=== PATIENT | female | born 1960 | race Caucasian/White ===

== ENCOUNTER 2016-04-27 12:29 | Inpatient (IN) | payer MEDICAID, OTHER ==
--- NOTE | 2016-04-27 13:45 | ED ---
General Adult HPI - General Chief complaint: Psychiatric Symptoms Stated complaint: Mental Health Time Seen by Provider: 04/27/16 12:49 Source: patient, RN notes reviewed, old records reviewed Mode of arrival: ambulatory Limitations: no limitations - History of Present Illness Initial comments: This is a 55-year-old female ER for evaluation of psychiatric not suicidal thoughts, patient has history of suicide and depression, she was at [facility] today and was sent to ER for evaluation of increasing depression and suicidal ideation , patient does have a plan wanted chewable tablets and kill herself. - Related Data Home Medications Medication Instructions Recorded Confirmed Gabapentin [Neurontin] 300 mg PO BID 03/21/15 04/27/16 QUEtiapine FUMARATE [SEROquel XR] 400 mg PO BID 03/21/15 04/27/16 Sertraline [Zoloft] 200 mg PO DAILY 03/21/15 04/27/16 lamoTRIgine [LaMICtal] 150 mg PO QAM 03/21/15 04/27/16 lamoTRIgine [LaMICtal] 200 mg PO HS 03/21/15 04/27/16 Albuterol Inhaler [Ventolin Hfa 2 puff INHALATION RT-QID PRN 04/27/16 04/27/16 Inhaler] Cholecalciferol [Vitamin D3] 2,000 unit PO DAILY 04/27/16 04/27/16 Dicyclomine HCl 20 mg PO TID PRN 04/27/16 04/27/16 LORazepam [Ativan] 1 mg PO BID PRN 04/27/16 04/27/16 Mirtazapine [Remeron] 15 mg PO HS 04/27/16 04/27/16 Polyethylene Glycol 3350 [Miralax] 17 gm PO DAILY 04/27/16 04/27/16 Stress Formula W/Zinc 1 tab PO DAILY 04/27/16 04/27/16 traMADol HCL [Ultram] 50 mg PO Q12H 04/27/16 04/27/16 Allergies Allergy/AdvReac Type Severity Reaction Status Date / Time No Known Allergies Allergy Verified 04/27/16 13:11 Review of Systems ROS Statement: Those systems with pertinent positive or pertinent negative responses have been documented in the HPI. ROS Other: All systems not noted in ROS Statement are negative. Past Medical History Past Medical History: Hypertension History of Any Multi-Drug Resistant Organisms: None Reported Past Surgical History: Orthopedic Surgery Past Psychological History: Anxiety, Bipolar, Depression Smoking Status: Current every day smoker Past Alcohol Use History: None Reported Past Drug Use History: None Reported General Exam Limitations: no limitations General appearance: alert, in no apparent distress Head exam: Present: atraumatic, normocephalic, normal inspection Eye exam: Present: normal appearance, PERRL, EOMI. Absent: scleral icterus, conjunctival injection, periorbital swelling ENT exam: Present: normal exam, mucous membranes moist Neck exam: Present: normal inspection. Absent: tenderness, meningismus, lymphadenopathy Respiratory exam: Present: normal lung sounds bilaterally. Absent: respiratory distress, wheezes, rales, rhonchi, stridor Cardiovascular Exam: Present: regular rate, normal rhythm, normal heart sounds. Absent: systolic murmur, diastolic murmur, rubs, gallop, clicks GI/Abdominal exam: Present: soft, normal bowel sounds. Absent: distended, tenderness, guarding, rebound, rigid Extremities exam: Present: normal inspection, full ROM, normal capillary refill. Absent: tenderness, pedal edema, joint swelling, calf tenderness Back exam: Present: normal inspection Neurological exam: Present: alert, oriented X3, CN II-XII intact Psychiatric exam: Present: normal affect, normal mood Skin exam: Present: warm, dry, intact, normal color. Absent: rash Course Vital Signs 04/27/16 12:40 Temperature 98.1 F Pulse Rate 100 Respiratory 18 Rate Blood Pressure 134/85 O2 Sat by Pulse 97 Oximetry - Reevaluation(s) Reevaluation #1: 04/27/16 13:44 Patient's medically clear for psychiatric evaluation Medical Decision Making - Medical Decision Making 55 female the ER for evaluation of mental health, patient was sent to us by [facility] will be admitted for psychiatric evaluation and treatment Disposition Clinical Impression: Suicidal ideation, Depression Disposition: TRANSFER TO PSYCH HOSP/UNIT Condition: Fair Decision to Admit Reason: Admit from EC
[2016-04-27] MEDS ORDERED: ALBUTEROL INHALER 60 PUFF/8 GM INHALER INHALATION PRN (16:47)
[2016-04-27] MEDS ORDERED: ACETAMINOPHEN TAB 325 MG TAB PO PRN (16:50)
[2016-04-27] MEDS ORDERED: MAGNESIUM HYDROXIDE 2,400 MG/10 ML CUP PO PRN (16:50)
[2016-04-27] MEDS ORDERED: MAG HYDROX/AL HYDROX/SIMETH 30 ML CUP PO PRN (16:50)
[2016-04-27] MEDS: lamoTRIgine 100 MG TAB PO SCH (21:35)
[2016-04-27] MEDS: GABAPENTIN 300 MG CAP PO SCH (21:35)
[2016-04-27] MEDS: QUEtiapine XR 200 MG TAB.ER.24H PO SCH (21:35)
[2016-04-27] MEDS: traMADol 50 MG TAB PO SCH (21:35)
[2016-04-27] MEDS: MIRTAZAPINE 15 MG TAB PO SCH (21:35)
[2016-04-28] MEDS: CHOLECALCIFEROL 1,000 UNIT TAB PO SCH (08:07)
[2016-04-28] MEDS: POLYETHYLENE GLYCOL 3350 17 GM POWD.PACK PO SCH (08:08)
[2016-04-28] MEDS: lamoTRIgine 100 MG TAB PO SCH ×2 (08:10→20:53)
[2016-04-28] MEDS: NICOTINE 14MG/24HR PATCH TRANSDERM SCH (08:10)
[2016-04-28] MEDS: GABAPENTIN 300 MG CAP PO SCH (08:10)
[2016-04-28] MEDS: SERTRALINE 100 MG TAB PO SCH (08:11)
[2016-04-28] MEDS: QUEtiapine XR 200 MG TAB.ER.24H PO SCH ×2 (08:11→20:53)
[2016-04-28] MEDS: traMADol 50 MG TAB PO SCH (08:11)
[2016-04-28] MEDS: LORazepam 1 MG TAB PO PRN (08:13)
[2016-04-28 08:34] LABS: Basophils # (A) 0.1 k/uL (0-0.2); Basophils % (A) 1 %; CH 31.9; CHCM 32.7; Eosinophils # (A) 0.3 k/uL (0-0.7); Eosinophils % (A) 5 %; HCT 43.3 % (34.0-46.0); HDW 2.52; HGB 13.9 gm/dL (11.4-16.0); Luc % (Auto) 3; Lymphocytes # (A) 2.7 k/uL (1.0-4.8); Lymphocytes % (A) 41 %; MCH 31.5 pg (25.0-35.0); MCHC 32.1 g/dL (31.0-37.0); MCV 98.1 fL (80.0-100.0); Mean Platelet Volume 7.6; Monocytes # (A) 0.4 k/uL (0-1.0); Monocytes % (A) 6 %; Neutrophils % (A) 45 %; RBC 4.41 m/uL (3.80-5.40); RDW 12.6 % (11.5-15.5); WBC 6.6 k/uL (3.8-10.6); WBC (Perox) 6.28
[2016-04-28 08:43] LABS: ALT 19 U/L (9-52); AST 26 U/L (14-36); Alkaline Phosphatase 88 U/L (38-126); Anion Gap 12 mmol/L; Blood Urea Nitrogen 7 mg/dL (7-17); Calcium 10.2 mg/dL (8.4-10.2); Carbon Dioxide 27 mmol/L (22-30); Chloride 108 mmol/L (98-107); Glucose 93 mg/dL (74-99); Non-African American GFR(MDRD) >60 (>60 ml/min/1.73 sqM); Potassium 5.2 mmol/L (3.5-5.1); Sodium 147 mmol/L (137-145); Total Bilirubin 0.5 mg/dL (0.2-1.3); Total Protein 7.2 g/dL (6.3-8.2)
[2016-04-28 08:48] VITALS: BMI 26.0
[2016-04-28] MEDS ORDERED: STRESS FORMULA PO SCH (09:00)
[2016-04-28] MEDS ORDERED: ZINC PO SCH (09:00)
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
[2016-04-28] MEDS: buPROPion XL 150 MG TAB.ER.24H PO SCH (11:59)
[2016-04-28] MEDS: MIRTAZAPINE 15 MG TAB PO SCH (20:53)
[2016-04-29] MEDS: NICOTINE 14MG/24HR PATCH TRANSDERM SCH (08:45)
[2016-04-29] MEDS: QUEtiapine XR 200 MG TAB.ER.24H PO SCH ×2 (08:46→20:38)
[2016-04-29] MEDS: lamoTRIgine 100 MG TAB PO SCH ×2 (08:46→20:38)
[2016-04-29] MEDS: buPROPion XL 150 MG TAB.ER.24H PO SCH (08:46)
[2016-04-29] MEDS: SERTRALINE 100 MG TAB PO SCH (08:47)
[2016-04-29] MEDS: POLYETHYLENE GLYCOL 3350 17 GM POWD.PACK PO SCH (08:47)
[2016-04-29] MEDS: CHOLECALCIFEROL 1,000 UNIT TAB PO SCH (08:47)
--- NOTE | 2016-04-29 10:54 | P.CONS ---
History of Present Illness - Reason for Consult Consult date: 04/29/16 Medical management - History of Present Illness This is a 55-year-old female. Her primary care practitioner is Tanisha Marroquin with Dr. Marichuy Parker. She has a past medical history for hypertension on low-fat diet anxiety, depression, bipolar, 2 GI bleeds episodes in the past the last one in December 2014, tobacco use and dependence. Patient states that she has been depressed and suicidal. She follows with [facility] and was sent into [facility] emergency center for evaluation. Sodium was 147, potassium 5.2 and chloride 108. TSH 3.580. She states she was seen by Dr. Preciado on April 23 and was placed on MiraLAX and some type of pain pill. Review of Systems All systems: negative Constitutional: Denies chills, Denies fever Eyes: denies blurred vision, denies pain Ears, nose, mouth and throat: Denies headache, Denies sore throat Cardiovascular: Denies chest pain, Denies shortness of breath Respiratory: Denies cough Gastrointestinal: Denies abdominal pain, Denies diarrhea, Denies nausea, Denies vomiting Genitourinary: Denies dysuria, Denies hematuria Musculoskeletal: Denies myalgias Integumentary: Denies pruritus, Denies rash Neurological: Denies numbness, Denies weakness Psychiatric: Reports anxiety, Reports depression, Reports hopelessness, Reports suicidal ideation Endocrine: Denies fatigue, Denies weight change Past Medical History Past Medical History: Hypertension Additional Past Medical History / Comment(s): GI bleed 2 requiring blood transfusion the last one in December 2014, hypertension on diet control History of Any Multi-Drug Resistant Organisms: None Reported Past Surgical History: Hysterectomy, Orthopedic Surgery, Tubal Ligation Additional Past Surgical History / Comment(s): ACL repair on the right knee, right second finger surgery, tubal ligation Past Psychological History: Anxiety, Bipolar, Depression Smoking Status: Current every day smoker Past Alcohol Use History: None Reported Additional Past Alcohol Use History / Comment(s): Patient is a smoker one pack per day for more than 20 years. She states she was clean from alcohol for 9 years. She denies any medical marijuana, marijuana or street drug use. She is single and she has 3 children Past Drug Use History: None Reported - Past Family History Father Additional Family Medical History / Comment(s): Father at 75 from COPD. Mother Additional Family Medical History / Comment(s): Mother at age 76 from heart failure and COPD Brother(s) Additional Family Medical History / Comment(s): Patient has 1 brother with history of alcohol abuse currently sober. Patient does not have any sisters. Medications and Allergies Home Medications Medication Instructions Recorded Confirmed Type Gabapentin [Neurontin] 300 mg PO BID 03/21/15 04/27/16 History QUEtiapine FUMARATE [SEROquel XR] 400 mg PO BID 03/21/15 04/27/16 History Sertraline [Zoloft] 200 mg PO DAILY 03/21/15 04/27/16 History lamoTRIgine [LaMICtal] 150 mg PO QAM 03/21/15 04/27/16 History lamoTRIgine [LaMICtal] 200 mg PO HS 03/21/15 04/27/16 History Albuterol Inhaler [Ventolin Hfa 2 puff INHALATION RT-QID PRN 04/27/16 04/27/16 History Inhaler] Cholecalciferol [Vitamin D3] 2,000 unit PO DAILY 04/27/16 04/27/16 History Dicyclomine HCl 20 mg PO TID PRN 04/27/16 04/27/16 History LORazepam [Ativan] 1 mg PO BID PRN 04/27/16 04/27/16 History Mirtazapine [Remeron] 15 mg PO HS 04/27/16 04/27/16 History Polyethylene Glycol 3350 [Miralax] 17 gm PO DAILY 04/27/16 04/27/16 History Stress Formula W/Zinc 1 tab PO DAILY 04/27/16 04/27/16 History traMADol HCL [Ultram] 50 mg PO Q12H 04/27/16 04/27/16 History Allergies Allergy/AdvReac Type Severity Reaction Status Date / Time No Known Allergies Allergy Verified 04/27/16 13:11 Physical Exam Vitals: Vital Signs Temp Pulse Resp BP 04/29/16 06:40 97.7 F 84 16 114/69 Intake and Output 04/28/16 04/29/16 04/29/16 21:59 06:59 14:59 Other: Weight 71.3 kg Patient Weight 04/30/16 06:59 Weight 71.3 kg Gen: This is a 55-year-old female with disheveled appearance. She is cooperative. HEENT: Head is atraumatic, normocephalic. Pupils equal, round. Sclerae is anicteric. NECK: Supple. No JVD. No lymphadenopathy. No thyromegaly. LUNGS: Clear to auscultation. No wheezes or rhonchi. No intercostal retractions. HEART: Regular rate and rhythm. No murmur. ABDOMEN: Soft. Bowel sounds are present. No masses. Mild epigastric tenderness tenderness. EXTREMITIES: No pedal edema. No calf tenderness. NEUROLOGICAL: Patient is awake, alert and oriented x3. Cranial nerves 2 through 12 are grossly intact. Results CBC & Chem 7: 04/28/16 08:01 04/28/16 08:01 Assessment and Plan Plan: 1. Depression with suicidal ideation. Patient admitted to the mental health unit. Continue current plan of care. 2. Hypertension on low salt diet. Continue to monitor. 3. Tobacco use and dependence. Continue nicotine patch. 4. Epigastric tenderness with history of previous GI bleed. Hemoglobin stable. Continue Protonix 40 mg daily. 5. Vitamin D efficiency. Continue supplement. 6. Possible COPD. Continue Ventolin inhaler. Impression and plan of care have been directed as dictated by the signing physician. Rita Arango nurse practitioner acting as scribe for signing physician. CC: Tanisha Marroquin NP Time with Patient: Greater than 30
--- NOTE | 2016-04-29 10:56 | P.PN ---
Progress Note - Text Interval history: The patient is found in the hallway she follows me to an interview room. She states her mood is depressed she states she cried all day yesterday. She continues to feel as though she is excessively sleeping. We discussed that it is less usual to use the Seroquel XR twice a day but she feels it is helpful administered that way. We have initiated the Wellbutrin no side effect reports so far. She continues to have hopelessness thinking. She did not attend groups yesterday she is encouraged to begin attending groups today. Appetite impaired she states she did not eat breakfast. Mental status exam: The patient is alert she's cooperative she endorses a depressed mood with hopelessness thinking she is tearful. She demonstrates some psychomotor slowing but is able to ambulate without ataxia. No homicidal ideation no overt symptoms of psychosis hypomania or amee. Insight and judgment limited. She demonstrates no verbal or physical aggressiveness. She is oriented to person place and date. Plan: The patient will continue on her current medication. We will review [facility] medication review records. She is encouraged to fully participate in the milieu we will monitor her for safety.
[2016-04-29] MEDS: LORazepam 1 MG TAB PO PRN (11:15)
[2016-04-29] MEDS: PANTOPRAZOLE 40 MG TABLET PO SCH (11:15)
[2016-04-29 12:48] LABS: Appearance,Urine Clear (Clear); Bilirubin,Urine Negative (Negative); Glucose,Urine (UA) Negative (Negative); Ketones,Urine Negative (Negative); Leukocyte Esterase,Urine Negative (Negative); Nitrite,Urine Negative (Negative); Protein,Urine Negative (Negative); Specific Gravity,Urine 1.003 (1.001-1.035); UA Billing (MACRO vs. MICRO) CHEM; Urobilinogen,Urine <2.0 mg/dL (<2.0)
[2016-04-29] MEDS: MIRTAZAPINE 15 MG TAB PO SCH (20:38)
[2016-04-30] MEDS: PANTOPRAZOLE 40 MG TABLET PO SCH (06:45)
[2016-04-30] MEDS: buPROPion XL 150 MG TAB.ER.24H PO SCH (09:06)
[2016-04-30] MEDS: lamoTRIgine 100 MG TAB PO SCH ×2 (09:06→19:54)
[2016-04-30] MEDS: CHOLECALCIFEROL 1,000 UNIT TAB PO SCH (09:06)
[2016-04-30] MEDS: QUEtiapine XR 200 MG TAB.ER.24H PO SCH ×2 (09:06→19:55)
[2016-04-30] MEDS: NICOTINE 14MG/24HR PATCH TRANSDERM SCH (09:06)
[2016-04-30] MEDS: SERTRALINE 100 MG TAB PO SCH (09:07)
[2016-04-30] MEDS: POLYETHYLENE GLYCOL 3350 17 GM POWD.PACK PO SCH ×2 (09:09→19:57)
[2016-04-30] MEDS: LORazepam 1 MG TAB PO PRN ×2 (09:09→14:29)
--- NOTE | 2016-04-30 09:25 | P.PN ---
Progress Note - Text Interval history: The patient is found in the hallway she follows me to an interview room. She continues to feel sad she states she was tearful throughout the day yesterday. She reports that she had a brief episode of feeling more normal in the afternoon. We discussed her psychotropic medications again and are likely plan of titrating the Wellbutrin XL further. She went to approximate to groups yesterday she plans on attending more today. She describes having difficulty with constipation and states that her train clerk wants her on MiraLAX twice a day. Mental status exam: The patient is alert she seated calmly she reports a depressed mood with hopelessness thinking. She endorses continued suicidal ideation. She is briefly tearful during our session and reconstitutes. There is mild psychomotor slowing. No psychomotor agitation. Speech is fluent spontaneous nonpressured. She is cooperative. She is endorsing no auditory or visual hallucinations no specific delusions. She demonstrates no hypomanic or manic symptoms. She remains oriented to person place and date. Plan: The patient requires continued hospitalization for her acute suicidal ideation. We will consider titrating the Wellbutrin further this is a new medication for her. We will add Colace and increase the frequency of the MiraLAX to address her complaint of constipation. She is encouraged to more fully participate in the milieu. Vital signs reviewed.
[2016-04-30] MEDS: DOCUSATE 100 MG CAP PO SCH ×2 (09:47→19:55)
[2016-04-30] MEDS ORDERED: DICYCLOMINE 20 MG TAB PO SCH (19:00)
[2016-04-30] MEDS: DICYCLOMINE 20 MG TAB PO PRN (19:45)
[2016-04-30] MEDS: MIRTAZAPINE 15 MG TAB PO SCH (19:54)
[2016-05-01 06:14] VITALS: RESP 18
--- NOTE | 2016-05-01 09:23 | P.PN ---
Progress Note - Text Interval history: The patient is found in the hallway she follows me to an interview room. She reports that today is the first morning she did not wake up crying. She is beginning to feel more upbeat and states she hasn't had any suicidal thoughts today so far. We discussed her medications including increasing Wellbutrin XL to 300 mg daily and she is agreeable. I was able to review a recent progress note from [facility]. She reports sleeping last night appetite stable. Mental status exam: The patient is alert she is dressed in her own clothing. Eye contact is appropriate speech is fluent. She is reporting a more optimistic mood. She states this morning is the first time she has not had any suicidal thoughts and has not been tearful. She does engage in the conversation. She is reporting no homicidal ideation intent or plan. She is endorsing no auditory or visual hallucinations there is no evidence of hypomanic or manic symptoms. Insight and judgment improving. Cognitively she is oriented to person place and date. No evidence of verbal or physical aggressiveness. Affect is demonstrating more range. Plan: The patient's will continue on her current psychotropic medication however we will increase the Wellbutrin XL to 300 mg daily. We will continue to monitor her for safety and encourage her full participation in the milieu. Consider discharge in the next 1-2 days.
[2016-05-01] MEDS: lamoTRIgine 100 MG TAB PO SCH ×2 (09:24→20:04)
[2016-05-01] MEDS: DOCUSATE 100 MG CAP PO SCH ×2 (09:24→20:04)
[2016-05-01] MEDS: CHOLECALCIFEROL 1,000 UNIT TAB PO SCH (09:24)
[2016-05-01] MEDS: NICOTINE 14MG/24HR PATCH TRANSDERM SCH (09:24)
[2016-05-01] MEDS: POLYETHYLENE GLYCOL 3350 17 GM POWD.PACK PO SCH ×2 (09:25→20:04)
[2016-05-01] MEDS: SERTRALINE 100 MG TAB PO SCH (09:25)
[2016-05-01] MEDS: QUEtiapine XR 200 MG TAB.ER.24H PO SCH ×2 (09:25→20:04)
[2016-05-01] MEDS: buPROPion XL 300 MG TAB.ER.24H PO SCH (09:32)
[2016-05-01] MEDS: buPROPion XL 150 MG TAB.ER.24H PO SCH (11:02)
[2016-05-01] MEDS: LORazepam 1 MG TAB PO PRN ×2 (11:03→20:06)
[2016-05-01] MEDS: DICYCLOMINE 20 MG TAB PO PRN (16:06)
[2016-05-01] MEDS: MIRTAZAPINE 15 MG TAB PO SCH (20:04)
[2016-05-02 06:43] VITALS: BP 115/75; PULSE 98; TEMP 97.5
--- NOTE | 2016-05-02 08:55 | P.DS ---
Providers Date of admission: 04/27/16 16:42 Expected date of discharge: 05/02/16 Attending physician: Slick Lawler Consults: 04/27/16 16:50 Consult Physician Routine Consulting Provider: Carlos Lane Reason/Comments: H and P Do you want consulting provider notified?: Yes Primary care physician: Queta Damon - Discharge Diagnosis(es) (1) Bipolar disorder, most recent episode depressed Current Visit: Yes Status: Acute Priority: High Hospital Course: Brief summary of admission note: This patient is a 55-year-old female who was admitted to the mental health unit through the emergency room for acute suicidal ideation. The patient reported worsening mood symptoms over the last 2 weeks including suicidal ideation. She stated her mood was "as low as it can go". She reported being tearful on a regular basis she was experiencing hypersomnia energy is low and anhedonia. She felt hopeless. She endorsed anxiety symptoms manifesting as panic attacks. She endorsed a history of bipolar disorder. For full details please refer to my psychiatric evaluation dated 04/28/2016. Summary of hospital course: The patient was admitted to the mental health unit voluntarily. We reviewed her presenting symptoms and medication options. The patient had artery been prescribed 6 psychotropic medications. We reviewed each and ultimately decided to discontinue Neurontin and initiate Wellbutrin XL which was eventually titrated to 300 mg daily. The patient's other psychotropic medications were continued. She was seen for a routine medical consultation. She attended groups she demonstrated no agitated behavior. While here in the hospital she reported a progressive improvement of her acute symptoms. She is scheduled to start DBT group and we discussed the benefits of that activity. The patient was able to participate in her activities of daily living while on the mental health unit. Mental status exam: The patient is an alert female appearing her stated age. She is dressed in her own clothing. Hygiene grooming adequate. Eye contact is appropriate speech is fluent and spontaneous nonpressured. She is reporting no acute suicidal or homicidal ideation intent or plan. She is endorsing no auditory or visual hallucinations and no specific delusions. There is no objective evidence of psychosis. There is no evidence of hypomanic or manic symptoms. Insight and judgment improved area cognitively she remains stable she is oriented to person place and date. There is no verbal or physical aggressiveness observed. Affect is more euthymic and she demonstrates an appropriate range of affect. Thought process is linear there is no evidence of circumstantial thinking tangential thinking loose associations or flight of ideas. Impressions 1. Bipolar disorder most recent depressed, alcohol use disorder in remission, rule out panic disorder, rule out PTSD 2. Cluster B traits 3. Infrequent back pain, possible asthma, IBS 4. Psychosocial dysfunction due to exacerbated symptoms of depression Plan: The patient will be discharged home today from the mental health unit following her family meeting. She will continue on Lamictal 150 mg in the morning 200 mg at bedtime, Wellbutrin XL 300 mg in the morning, Remeron 15 mg at bedtime, Zoloft 200 mg at bedtime, Seroquel XR 400 mg in the evening and Ativan 1 mg twice daily as needed. There is no imminent safety risk the patient is appropriate for transition back to outpatient services with [facility]. I agree with her initiating DBT group. She is instructed to return to the hospital if any acute safety concerns. Patient Condition at Discharge: Stable Plan - Discharge Summary New Discharge Prescriptions: Mirtazapine [Remeron] 15 mg PO HS #30 tablet Nicotine 14Mg/24Hr Patch [Habitrol] 1 patch TRANSDERM DAILY #14 patch QUEtiapine FUMARATE [Seroquel Xr] 400 mg PO BID #60 tab.er.24h Sertraline [Zoloft] 200 mg PO DAILY #60 tab buPROPion XL [Wellbutrin XL] 300 mg PO DAILY #30 tab.er.24h lamoTRIgine 150 mg PO DAILY #30 tab lamoTRIgine [LaMICtal Odt] 200 mg PO HS #30 tab Discharge Medication List Albuterol Inhaler [Ventolin Hfa Inhaler] 2 puff INHALATION RT-QID PRN 04/27/16 [ History] Cholecalciferol [Vitamin D3] 2,000 unit PO DAILY 04/27/16 [History] Dicyclomine HCl 20 mg PO TID PRN 04/27/16 [History] LORazepam [Ativan] 1 mg PO BID PRN 04/27/16 [History] Polyethylene Glycol 3350 [Miralax] 17 gm PO DAILY 04/27/16 [History] Stress Formula W/Zinc 1 tab PO DAILY 04/27/16 [History] traMADol HCL [Ultram] 50 mg PO Q12H 04/27/16 [History] Mirtazapine [Remeron] 15 mg PO HS #30 tablet 05/02/16 [Rx] Nicotine 14Mg/24Hr Patch [Habitrol] 1 patch TRANSDERM DAILY #14 patch 05/02/16 [ Rx] QUEtiapine FUMARATE [Seroquel Xr] 400 mg PO BID #60 tab.er.24h 05/02/16 [Rx] Sertraline [Zoloft] 200 mg PO DAILY #60 tab 05/02/16 [Rx] buPROPion XL [Wellbutrin XL] 300 mg PO DAILY #30 tab.er.24h 05/02/16 [Rx] lamoTRIgine 150 mg PO DAILY #30 tab 05/02/16 [Rx] lamoTRIgine [LaMICtal Odt] 200 mg PO HS #30 tab 05/02/16 [Rx] Follow up Appointment(s)/Referral(s): [facility] [Outside] - 1 Week (w/ Justina Casey on 05/04/16 @ 11:00am w/ Rosaura Romero on 05/04/16 @ 3:00pm)
[2016-05-02] MEDS: lamoTRIgine 100 MG TAB PO SCH (09:14)
[2016-05-02] MEDS: QUEtiapine XR 200 MG TAB.ER.24H PO SCH (09:14)
[2016-05-02] MEDS: LORazepam 1 MG TAB PO PRN (09:14)
[2016-05-02] MEDS: SERTRALINE 100 MG TAB PO SCH (09:14)
[2016-05-02] MEDS: CHOLECALCIFEROL 1,000 UNIT TAB PO SCH (09:14)
[2016-05-02] MEDS: buPROPion XL 300 MG TAB.ER.24H PO SCH (09:15)
[2016-05-02] MEDS: NICOTINE 14MG/24HR PATCH TRANSDERM SCH (09:15)
[2016-05-02] MEDS: DOCUSATE 100 MG CAP PO SCH (09:15)
[2016-05-02] MEDS: POLYETHYLENE GLYCOL 3350 17 GM POWD.PACK PO SCH (09:15)
== END 2016-05-02 12:08 | disposition home or self-care (01) | DRG 885 ==
LOC: EC 12:29 → 3MHU 16:42
PROVIDERS: ADMIT Psychiatry & Neurology Psychiatry; ATTEND Psychiatry & Neurology Psychiatry
DX: F31.9 Bipolar disorder, unspecified (principal); R45.851 Suicidal ideations; I10 Essential (primary) hypertension; F41.0 Panic disorder [episodic paroxysmal anxiety]; F17.200 Nicotine dependence, unspecified, uncomplicated; Z79.899 Other long term (current) drug therapy; Z81.8 Family history of other mental and behavioral disorders; Z82.49 Family history of ischemic heart disease and other diseases of the circulatory system; F59 Unspecified behavioral syndromes associated with physiological disturbances and physical factors; J45.909 Unspecified asthma, uncomplicated; K58.1 Irritable bowel syndrome with constipation
CPT/HCPCS: 80053; 80306; 81003; 82075; 84443; 85025; 94640; 99285

== ENCOUNTER → 2017-09-02 | Outpatient (CLI) | payer MEDICARE ==
--- NOTE | 2017-09-02 16:37 | BD ---
EXAMINATION TYPE: Axial Bone Density DATE OF EXAM: 09/02/2017 COMPARISON: NONE CLINICAL HISTORY: 56-year-old female with bone pain Height: 64 IN Weight: 173 LBS FRAX RISK QUESTIONS: Secondary Osteoporosis: Current Tobacco Use: YES RISK FACTORS HISTORY OF: History of Wrist Fracture: RT WRIST AGE AGE 48 When: AGE 48 Active: MODERATE Diet low in dairy products/other sources of calcium: YES Postmenopausal woman: AGE 48 Frequent falls: YES DUE TO NUMBNESS IN LEGS MEDICATIONS: Additional Medications: LAMICTAL, QUETIPINE, EFFEXOR, ATIVAN, TRAMADOL, POLYETHYLENE, LISINOPRIL, EXAM MEASUREMENTS: Bone mineral densitometry was performed using the [employer]. Bone mineral density as measured about the Lumbar spine is: ----- L1-L4(G/cm2): 1.390 T Score Values are as follows: ----- L2: 0.7 ----- L3: 2.6 ----- L4: 2.9 ----- L1-L4: 1.8 Bone mineral density BASELINE Bone mineral density about the R hip (g/cm2): 1.075 Bone mineral density about the L hip (g/cm2): 1.105 T Score values are as follows: -----R Neck: 0.3 -----L Neck: 0.5 -----R Total: 0.0 -----L Total: 0.3 Bone mineral density BASELINE IMPRESSION: Normal (Values between +1 and -1 indicate normal bone mass). Consider repeating this study in 5 year s or sooner if there is some new clinical indication. NOTE: T-SCORE=SD OF THE YOUNG ADULT MEAN.
== END | disposition home or self-care (01) ==
LOC: RADBDWWP 12:27
PROVIDERS: ATTEND Internal Medicine
DX: M89.8X9 Other specified disorders of bone, unspecified site (principal)
CPT/HCPCS: 77080

== ENCOUNTER 2017-09-24 13:28 | Inpatient (IN) | payer MEDICARE ==
--- NOTE | 2017-09-24 14:08 | ED ---
General Adult HPI - General Chief complaint: Psychiatric Symptoms Stated complaint: EPS eval Time Seen by Provider: 09/24/17 13:40 Source: patient, EMS, RN notes reviewed Mode of arrival: EMS Limitations: no limitations - History of Present Illness Initial comments: This a 56-year-old female presents emergency Department complaining that she's been hallucinating lately and hearing voices. Patient states she thought yesterday her and her doctor were in a car together driving somewhere and also had to drive around her boyfriend he was standing in the middle of the road her boyfriend confirmed to her today that that did not happen. Also the patient states she believes yesterday she went to her doctor's office to do her grocery shopping. Patient also states she's been having which she believes to be the devil talking her to tell her to kill herself. Patient states she is not suicidal and she is not listening to home but she does keep her in the voices. She also states she hears God talking to her telling her it'll be all right. Patient denies any physical complaints today. Patient denies headache patient denies numbness weakness. Patient denies any chest pain difficulty breathing shortest breath per patient denies abdominal pain patient denies nausea vomiting diarrhea. Patient states that she has not drank or done any illegal drugs - Related Data Home Medications Medication Instructions Recorded Confirmed Polyethylene Glycol 3350 [Miralax] 17 gm PO DAILY 04/27/16 09/24/17 lamoTRIgine [LaMICtal] 200 mg PO HS 02/06/17 09/24/17 LORazepam [Ativan] 1 mg PO TID PRN 09/24/17 09/24/17 Lisinopril [Zestril] 10 mg PO DAILY 09/24/17 09/24/17 Venlafaxine HCl ER [Effexor Xr] 75 mg PO BID-W/MEALS 09/24/17 09/24/17 lamoTRIgine [LaMICtal] 150 mg PO QAM 09/24/17 09/24/17 traMADol HCL [Ultram] 50 mg PO BID 09/24/17 09/24/17 Previous Rx's Medication Instructions Recorded QUEtiapine FUMARATE [Seroquel Xr] 400 mg PO BID #60 tab.er.24h 05/02/16 Allergies Allergy/AdvReac Type Severity Reaction Status Date / Time No Known Allergies Allergy Verified 09/24/17 14:35 Review of Systems ROS Statement: Those systems with pertinent positive or pertinent negative responses have been documented in the HPI. ROS Other: All systems not noted in ROS Statement are negative. Past Medical History Past Medical History: Hypertension Additional Past Medical History / Comment(s): GI bleed 2 requiring blood transfusion the last one in December 2014, hypertension on diet control History of Any Multi-Drug Resistant Organisms: None Reported Past Surgical History: Hysterectomy, Orthopedic Surgery, Tubal Ligation Additional Past Surgical History / Comment(s): ACL repair on the right knee, right second finger surgery, tubal ligation Past Psychological History: Anxiety, Bipolar, Depression Smoking Status: Current every day smoker Past Alcohol Use History: None Reported Past Drug Use History: None Reported - Past Family History Father Additional Family Medical History / Comment(s): Father at 75 from COPD. Mother Additional Family Medical History / Comment(s): Mother at age 76 from heart failure and COPD Brother(s) Additional Family Medical History / Comment(s): Patient has 1 brother with history of alcohol abuse currently sober. Patient does not have any sisters. General Exam - General Exam Comments Initial Comments: GENERAL: Patient is well-developed and well-nourished. Patient is nontoxic and well- hydrated and is in no acute distress. ENT: Neck is soft and supple. No significant lymphadenopathy is noted. Oropharynx is clear. Moist mucous membranes. Neck has full range of motion without eliciting any pain. EYES: The sclera were anicteric and conjunctiva were pink and moist. Extraocular movements were intact and pupils were equal round and reactive to light. Eyelids were unremarkable. PULMONARY: Unlabored respirations. Good breath sounds bilaterally. No audible rales rhonchi or wheezing was noted. CARDIOVASCULAR: There is a regular rate and rhythm without any murmurs gallops or rubs. ABDOMEN: Soft and nontender with normal bowel sounds. SKIN: Skin is clear with no lesions or rashes and otherwise unremarkable. NEUROLOGIC: Patient is alert and oriented x3. Cranial nerves II through XII are grossly intact. Motor and sensory are also intact. Normal speech, volume and content. Symmetrical smile. MUSCULOSKELETAL: Normal extremities with adequate strength and full range of motion. No lower extremity swelling or edema. No calf tenderness. LYMPHATICS: No significant lymphadenopathy is noted PSYCHIATRIC: Patient states she's hallucinating and is hearing voices. Patient denies suicidal or homicidal ideations the voices are telling her to Limitations: no limitations Course Vital Signs 09/24/17 13:37 Temperature 98.0 F Pulse Rate 116 H Respiratory 18 Rate Blood Pressure 138/90 O2 Sat by Pulse 95 Oximetry Disposition Clinical Impression: Psychosis Disposition: ADMITTED IP TO THIS HOSP Referrals: Queta Damon MD [Primary Care Provider] - 1-2 days Time of Disposition: 15:42
[2017-09-24] MEDS ORDERED: MAG HYDROX/AL HYDROX/SIMETH 30 ML CUP PO PRN (19:16)
[2017-09-24] MEDS ORDERED: MAGNESIUM HYDROXIDE 2,400 MG/10 ML CUP PO PRN (19:16)
[2017-09-24] MEDS: traMADol 50 MG TAB PO SCH (20:42)
[2017-09-24] MEDS: QUEtiapine 400 MG TAB PO SCH (20:42)
[2017-09-24] MEDS: lamoTRIgine 100 MG TAB PO SCH (20:42)
[2017-09-25] MEDS: LORazepam 1 MG TAB PO PRN (05:55)
--- NOTE | 2017-09-25 07:07 | P.PN ---
Progress Note - Text Progress Note Date: 09/25/17 patient with acute psychosis , and sedated could not be evaluated at this time. patient will be seen at a later time when more appropriate
[2017-09-25] MEDS ORDERED: VENLAFAXINE HCL ER 75 MG CAP PO SCH (07:30)
[2017-09-25] MEDS: POLYETHYLENE GLYCOL 3350 17 GM POWD.PACK PO SCH (08:39)
[2017-09-25] MEDS: lamoTRIgine 100 MG TAB PO SCH ×2 (08:40→20:26)
[2017-09-25] MEDS: QUEtiapine 400 MG TAB PO SCH (08:41)
[2017-09-25] MEDS: traMADol 50 MG TAB PO SCH (08:41)
[2017-09-25] MEDS: LISINOPRIL 10 MG TAB PO SCH (08:43)
[2017-09-25 09:10] LABS: Basophils % (A) 1 %; Eosinophils # (A) 0.2 k/uL (0-0.7); Eosinophils % (A) 2 %; HGB 12.5 gm/dL (11.4-16.0); Lymphocytes # (A) 2.4 k/uL (1.0-4.8); Lymphocytes % (A) 28 %; MCH 29.7 pg (25.0-35.0); MCHC 32.1 g/dL (31.0-37.0); MCV 92.5 fL (80.0-100.0); Mean Platelet Volume 6.3; Monocytes # (A) 0.5 k/uL (0-1.0); Monocytes % (A) 6 %; Neutrophils # (A) 5.1 k/uL (1.3-7.7); Neutrophils % (A) 61 %; Platelet Count 442 k/uL (150-450); RBC 4.21 m/uL (3.80-5.40); WBC 8.4 k/uL (3.8-10.6)
[2017-09-25] MEDS: VENLAFAXINE HCL ER 75 MG CAP PO SCH (09:38)
[2017-09-25 09:48] LABS: ALT 26 U/L (9-52); AST 30 U/L (14-36); Albumin 4.6 g/dL (3.5-5.0); Alkaline Phosphatase 78 U/L (38-126); Anion Gap 11 mmol/L; Blood Urea Nitrogen 9 mg/dL (7-17); Carbon Dioxide 24 mmol/L (22-30); Chloride 105 mmol/L (98-107); Cholesterol 273 mg/dL (<200); Glucose 87 mg/dL (74-99); HDL Cholesterol 61 mg/dL (40-60); LDL Cholesterol,Calculated 179 mg/dL (0-99); Potassium 4.4 mmol/L (3.5-5.1); Sodium 140 mmol/L (137-145); Total Bilirubin 0.4 mg/dL (0.2-1.3); Total Protein 7.1 g/dL (6.3-8.2); Triglycerides 167 mg/dL (<150)
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
--- NOTE | 2017-09-25 13:33 | P.CONS ---
History of Present Illness - Reason for Consult Consult date: 09/25/17 Medical management - Chief Complaint Hallucination - History of Present Illness This is a 56-year-old female with past medical history noted below significant for underlying bipolar disorder who presented to the emergency room with audible hallucination. Apparently patient believes on presentation that God was talking to her. She denies any suicidal thoughts or ideation. She denies any headache, weakness, or numbness. She was very agitated last night. When I saw her this morning patient was awake and alert. She was cooperative. She denies any suicidal thoughts at this time. She doesn't have any complaints or concerns. I was asked to see her for medical management Review of Systems Review of system: 14 points review of systems were obtained and were negative except to what were mentioned in the HPI. Past Medical History Past Medical History: GI Bleed, Hypertension, Osteoarthritis (OA) Additional Past Medical History / Comment(s): GI bleed 2 requiring blood transfusion the last one in December 2014, hypertension on diet control, alopecia, ibs, ulcerative colitis, diffuse diverticulosis, shingles that affected rt eye,cataracts. 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 History of Any Multi-Drug Resistant Organisms: None Reported Past Surgical History: Hysterectomy, Orthopedic Surgery, Tonsillectomy, Tubal Ligation Additional Past Surgical History / Comment(s): ACL repair on the right knee, right second finger severed tendons repaired.tubal ligation Past Anesthesia/Blood Transfusion Reactions: No Reported Reaction Past Psychological History: Anxiety, Bipolar, Depression Smoking Status: Current every day smoker Past Alcohol Use History: None Reported Additional Past Alcohol Use History / Comment(s): Patient is a smoker one pack per day (started 1979). 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 and clean from drug use(angle dust,acid,mesculine, cocaine -since 2006She denies any medical marijuana, marijuana or street drug use currently. She is single and she has 3 children Past Drug Use History: None Reported - Past Family History Father Additional Family Medical History / Comment(s): Father at 75 from COPD. Mother Additional Family Medical History / Comment(s): Mother at age 76 from heart failure and COPD Brother(s) Additional Family Medical History / Comment(s): Patient has 1 brother with history of alcohol abuse currently sober. Patient does not have any sisters. Medications and Allergies Home Medications Medication Instructions Recorded Confirmed Type Polyethylene Glycol 3350 [Miralax] 17 gm PO DAILY 04/27/16 09/24/17 History QUEtiapine FUMARATE [Seroquel Xr] 400 mg PO BID #60 tab.er.24h 05/02/16 Rx lamoTRIgine [LaMICtal] 200 mg PO HS 02/06/17 09/24/17 History LORazepam [Ativan] 1 mg PO TID PRN 09/24/17 09/24/17 History Lisinopril [Zestril] 10 mg PO DAILY 09/24/17 09/24/17 History Venlafaxine HCl ER [Effexor Xr] 75 mg PO BID-W/MEALS 09/24/17 09/24/17 History lamoTRIgine [LaMICtal] 150 mg PO QAM 09/24/17 09/24/17 History traMADol HCL [Ultram] 50 mg PO BID 09/24/17 09/24/17 History Allergies Allergy/AdvReac Type Severity Reaction Status Date / Time No Known Allergies Allergy Verified 09/24/17 14:35 Physical Exam Vitals: Vital Signs Temp Pulse Pulse Resp BP BP Pulse Ox 09/25/17 08:40 99 18 128/81 09/25/17 05:55 98.1 F 99 16 166/98 09/24/17 19:14 98 14 134/84 96 09/24/17 18:39 93 18 137/86 96 09/24/17 13:37 98.0 F 116 H 18 138/90 95 Intake and Output 09/24/17 09/25/17 09/25/17 22:59 06:59 14:59 Other: Weight 76 kg General: The patient is awake and alert, in no distress Eye: there is normal conjunctiva bilaterally. Neck: The neck is supple, there is no JVD. Cardiovascular: Normal S1-S2, no S3-S4, no murmurs. Respiratory: Lungs clear to auscultation bilaterally Gastrointestinal: Abdomen is soft, nontender Musculoskeletal: There is no pedal edema. Neurological:. Speech is normal. Skin: Skin is warm and dry Results CBC & Chem 7: 09/25/17 08:21 09/25/17 08:21 Labs: Abnormal Lab Results - Last 24 Hours (Table) 09/25/17 Range/Units 08:21 Triglycerides 167 H (<150) mg/dL Cholesterol 273 H (<200) mg/dL LDL Cholesterol, Calc 179 H (0-99) mg/dL HDL Cholesterol 61 H (40-60) mg/dL Assessment and Plan Assessment: 1. Bipolar disorder 2. Major depressive disorder 3. Audible hallucination 4. Psychosocial dysfunction 5. Tobacco abuse: Counseled extensively to quit 6. Essential hypertension, blood pressure well-controlled continue current dose of lisinopril Today, I reviewed her medication list and lab work results. Management per psychiatry team. We will continue to follow-up on her on as-needed basis. Thank you for the consultation.
[2017-09-25 19:32] LABS: Hemoglobin A1C 5.8 % (4.0-6.0)
[2017-09-25] MEDS: ARIPiprazole 2 MG TAB PO SCH (19:51)
[2017-09-25] MEDS: QUEtiapine 100 MG TAB PO SCH (20:26)
[2017-09-25] MEDS: traMADol 50 MG TAB PO PRN (20:46)
[2017-09-26] MEDS: QUEtiapine 100 MG TAB PO SCH ×2 (09:23→20:26)
[2017-09-26] MEDS: lamoTRIgine 100 MG TAB PO SCH ×2 (09:23→20:25)
[2017-09-26] MEDS: LISINOPRIL 10 MG TAB PO SCH (09:24)
[2017-09-26] MEDS: VENLAFAXINE HCL ER 75 MG CAP PO SCH (09:24)
[2017-09-26] MEDS: traMADol 50 MG TAB PO PRN (09:25)
[2017-09-26] MEDS: LORazepam 1 MG TAB PO PRN ×2 (09:25→16:16)
[2017-09-26] MEDS: POLYETHYLENE GLYCOL 3350 17 GM POWD.PACK PO SCH (10:57)
--- NOTE | 2017-09-26 12:36 | P.PN ---
Progress Note - Text Progress Note Date: 09/26/17 Interval History: Patient is a 56-year-old female who reports that she had one visual hallucination last evening otherwise no auditory hallucinations and states she is feeling more hopeful. She described feeling more revved up today but no suicidal thoughts and not feeling paranoid. She states that she was able to eat breakfast this morning. Patient reported no side effects from the changes in her medication and states she is not feeling any flulike symptoms from the decrease in the Effexor dose. Patient reported that she is hopeful that the changes in her medications will be beneficial. Mental Status: Appearance/Attitude: Patient is appropriately dressed, made good eye contact and was cooperative Behavior: Patient did not exhibit any psychomotor agitation or retardation Speech/Language: Patient's speech was spontaneous of normal volume and rhythm and she was coherent. Thought Process: Patient was goal-directed there is no evidence of loose association or flight of ideas Thought Content: Patient denied any auditory hallucinations and states she had one visual hallucination yesterday at night and asked staff to reorient her. No delusions or paranoid ideation were elicited. Patient states that she slept fairly well last evening but reports feeling revved up today. She states that she was able to eat breakfast. Suicidal/Homicidal Ideation: Patient denied any current suicidal or homicidal ideation Sensorium/Cognition: Patient is alert and oriented to person, place, time Mood/Affect: Patient's mood is brighter today and her affect is appropriate Insight/Judgment: Patient's insight and judgment are fair Assessment: Patient reports feeling more hopeful, states that she is not hearing voices, and states that she had one visual hallucination last night and asked staff to reorient her. She reported feeling more revved up today though. She states that she was able to eat breakfast this morning. Patient states she's been attending groups and activities. Kimber at that the patient slept for 6 hours last night. Plan: Patient will continue on her Lamictal at one or 50 mg the morning 200 at bedtime, will decrease her Seroquel tomorrow to 200 mg twice a day beginning with the at bedtime dose, we'll also consider increasing her Abilify to 5 mg tomorrow. Patient will have a lower dose of Effexor beginning tomorrow 37-1/2 mg extended release and after 3 days we'll discontinue it. Patient continues to require hospitalization to stabilize her mood.
[2017-09-26] MEDS: ARIPiprazole 2 MG TAB PO SCH (20:25)
[2017-09-27] MEDS: lamoTRIgine 100 MG TAB PO SCH ×2 (09:12→20:50)
[2017-09-27] MEDS: LISINOPRIL 10 MG TAB PO SCH (09:13)
[2017-09-27] MEDS: POLYETHYLENE GLYCOL 3350 17 GM POWD.PACK PO SCH (09:13)
[2017-09-27] MEDS: VENLAFAXINE HCL ER 37.5 MG CAP PO SCH (09:13)
[2017-09-27] MEDS: QUEtiapine 100 MG TAB PO SCH (09:13)
[2017-09-27] MEDS: traMADol 50 MG TAB PO PRN ×2 (09:14→20:50)
--- NOTE | 2017-09-27 11:27 | P.PN ---
Progress Note - Text Progress Note Date: 09/27/17 Interval History: Patient is a 56-year-old female who was seen today, she reports that she is not feeling quite as energized as she was yesterday but states that her appetite has improved. She reports still having visual hallucinations at night when she gets up in the middle of the night but staff reorients her and she states she is fine after that. Patient denies any suicidal ideation and states she did sleep well last night and felt rested this morning. Patient reports no side effects from the adjustments in her medication other than feeling slightly sedated this morning. Mental Status: Appearance/Attitude: Patient is casually dressed, makes good eye contact and was cooperative. Behavior: She does not exhibit any psychomotor agitation or retardation. Speech/Language: Patient speech was spontaneous of normal volume and rhythm and she is coherent. Thought Process: Patient was goal-directed there is no evidence of loose association or flight of ideas Thought Content: Patient denied any auditory hallucinations and states she continues to have visual hallucinations at night when she awakens in the middle of the night. No paranoid or delusional ideation was elicited. Patient states that she slept for 6-1/2 hours last night and also reports that her appetite has improved. Patient reports no side effects from the changes in her medication other than feeling slightly sedated this morning. Suicidal/Homicidal Ideation: Patient denied any suicidal or homicidal ideation at this time Sensorium/Cognition: Patient is alert and oriented to person, place, time and her recent and remote memory grossly intact Mood/Affect: Patient's mood is more depressed today and her affect is appropriate Insight/Judgment: Patient's insight and judgment are intact Assessment: Patient and I discussed fact that she is not feeling quite as energized today in fact was feeling slightly sedated after her morning medication. She reports however that her appetite has improved and she slept well last night. She reports of visual hallucination last night when she awakened in the middle of the night but was reoriented by staff. She states that she is attending groups and activities. Patient reported no other side effects from the medication changes. Plan: We'll continue Effexor 37.5 mg extended release and discontinue after her dose on Saturday, we'll decrease her Seroquel to 200 mg twice a day, and decreased further to 100 mg twice a day beginning Aidan evening. Patient's Abilify will be increased to 5 mg tonight and increase it to 10 mg on Saturday night. Patient continues to require hospitalization to stabilize her mood and continue the cross titration of medications.
[2017-09-27] MEDS: LORazepam 1 MG TAB PO PRN (14:43)
[2017-09-27 17:10] LABS: Appearance,Urine Clear (Clear); Bilirubin,Urine Negative (Negative); Blood,Urine Negative (Negative); Color,Urine Light Yellow; Glucose,Urine (UA) Negative (Negative); Ketones,Urine Negative (Negative); Leukocyte Esterase,Urine Negative (Negative); Nitrite,Urine Negative (Negative); PH, Urine 6.5 (5.0-8.0); Protein,Urine Negative (Negative); Specific Gravity,Urine 1.007 (1.001-1.035); Urobilinogen,Urine <2.0 mg/dL (<2.0)
[2017-09-27 17:21] LABS: Amphetamine Screen,Urine Not Detected (NotDetected); Barbiturate Screen,Urine Not Detected (NotDetected); Benzodiazepines Screen,Urine Detected (NotDetected); Cocaine Screen,Urine Not Detected (NotDetected); Methadone Screen, Urine Not Detected (NotDetected); Opiate Screen,Urine Not Detected (NotDetected); Oxycodone Screen, Urine Not Detected (NotDetected); Phencyclidine Screen,Urine Not Detected (NotDetected); Tricyclic Antidepressant,Urine Detected (NotDetected); Urn Cannabinoid Scrn Not Detected (NotDetected)
[2017-09-27] MEDS: ARIPiprazole 5 MG TAB PO SCH (18:38)
[2017-09-27] MEDS: QUEtiapine 200 MG TAB PO SCH (20:50)
[2017-09-28] MEDS: LORazepam 1 MG TAB PO PRN ×2 (00:32→18:24)
[2017-09-28] MEDS: POLYETHYLENE GLYCOL 3350 17 GM POWD.PACK PO SCH ×2 (08:30→15:43)
[2017-09-28] MEDS: lamoTRIgine 100 MG TAB PO SCH ×2 (08:30→20:14)
[2017-09-28] MEDS: traMADol 50 MG TAB PO PRN ×2 (08:31→15:47)
[2017-09-28] MEDS: LISINOPRIL 10 MG TAB PO SCH (08:33)
[2017-09-28] MEDS: QUEtiapine 200 MG TAB PO SCH ×2 (08:33→20:14)
[2017-09-28] MEDS: VENLAFAXINE HCL ER 37.5 MG CAP PO SCH (08:33)
--- NOTE | 2017-09-28 11:58 | P.PN ---
Progress Note - Text Interval history: The patient is found in the hallway she follows me to an interview room. She indicates her mood is better today. She states she continues to experience a visual hallucination once or twice a day but states at night might be part of her dream. It appears her medications are being changed and she is compliant with her medications. There is a plan to remove the Effexor her Seroquel has been decreased. She has no questions or concerns regarding her psychotropic medication. Vital signs reviewed. Mental status exam: The patient's pleasant and cooperative. She is soft- spoken. She is dressed in her own clothing and wears eyeglasses. She indicates her mood is better today. She is reporting no suicidal or homicidal ideation intent or plan. She states she feels safe here in the hospital. She endorses no auditory hallucinations. She is endorsing no current visual hallucinations. There is no verbal or physical aggressiveness she demonstrates no abnormal involuntary movements. Insight and judgment limited. Affect is constricted. Plan: We will continue with the planned changes to her psychotropic medication. We will continue to monitor her for safety and encourage her participation in the milieu.
[2017-09-28] MEDS: ARIPiprazole 5 MG TAB PO SCH (18:24)
[2017-09-28] MEDS: ACETAMINOPHEN TAB 325 MG TAB PO PRN (20:14)
[2017-09-29] MEDS: traMADol 50 MG TAB PO PRN ×2 (04:56→20:35)
[2017-09-29] MEDS: LORazepam 1 MG TAB PO PRN ×2 (06:07→17:56)
[2017-09-29] MEDS: QUEtiapine 200 MG TAB PO SCH (08:47)
[2017-09-29] MEDS: lamoTRIgine 100 MG TAB PO SCH ×2 (08:48→20:32)
[2017-09-29] MEDS: VENLAFAXINE HCL ER 37.5 MG CAP PO SCH (08:49)
[2017-09-29] MEDS: POLYETHYLENE GLYCOL 3350 17 GM POWD.PACK PO SCH (08:49)
[2017-09-29] MEDS: LISINOPRIL 10 MG TAB PO SCH (08:49)
--- NOTE | 2017-09-29 11:43 | P.PN ---
Progress Note - Text Interval history: The patient is found in her room she follows me to an interview room. She reports that she feels very tired. She continues to endorse an auditory hallucination once a day. She states that she needed reassurance from staff that there was on a monster in her room. She has taken her last dose of the Effexor. Her Seroquel is scheduled to be reduced and the Abilify has been titrated. She states that she has missed groups this morning. Mental status exam: The patient is an alert pleasant cooperative female appearing her stated age. She is dressed in her own clothing she is mildly disheveled. She states her mood is very tired. She states that she continues to have a visual hallucination once a day is still has some feelings of fearfulness. She reports no suicidal thoughts or homicidal thoughts. Insight and judgment limited. She demonstrates no verbal or physical aggressiveness she demonstrates no abnormal involuntary movements. She is oriented to person place and date. Affect is constricted. Plan: The patient's medication has been changed as scheduled. The Seroquel is reduced the Abilify has been titrated Effexor XR will be discontinued. Vital signs reviewed. She is encouraged to participate in the milieu we will continue to monitor her for safety
[2017-09-29] MEDS: ACETAMINOPHEN TAB 325 MG TAB PO PRN (12:44)
[2017-09-29] MEDS: ARIPiprazole 10 MG TAB PO SCH (17:56)
[2017-09-29] MEDS ORDERED: QUEtiapine 100 MG TAB PO SCH (21:00)
[2017-09-30] MEDS: ACETAMINOPHEN TAB 325 MG TAB PO PRN ×2 (01:13→09:11)
[2017-09-30] MEDS: LORazepam 1 MG TAB PO PRN (05:33)
[2017-09-30] MEDS ORDERED: QVAR 40 MCG INHALATION SCH ×2 (08:00)
[2017-09-30] MEDS ORDERED: [UNRECOGNIZED DRUG - OTHER] INHALATION SCH (09:00)
[2017-09-30] MEDS: lamoTRIgine 100 MG TAB PO SCH ×2 (09:06→20:19)
[2017-09-30] MEDS: LISINOPRIL 10 MG TAB PO SCH (09:08)
[2017-09-30] MEDS: POLYETHYLENE GLYCOL 3350 17 GM POWD.PACK PO SCH ×2 (09:09→18:53)
[2017-09-30] MEDS: QVAR 40 MCG INHALATION SCH ×2 (09:29→20:30)
[2017-09-30] MEDS: traMADol 50 MG TAB PO PRN ×2 (12:05→21:08)
[2017-09-30] MEDS: LORazepam 0.5 MG TAB PO PRN ×2 (12:19→21:09)
--- NOTE | 2017-09-30 12:55 | P.PN ---
Progress Note - Text Progress Note Date: 09/30/17 Interval History: Patient is a 56-year-old female who was seen this morning and states that she's feeling tired, she stated that the visual hallucinations are less intense but can she continues to have them. Patient also reported no auditory hallucinations and states that she's been attending groups and activities. Patient again discussed her use of Ativan when she leaves the house and she has been using it here. Patient denied any suicidal ideation. She states she didn't sleep well last night she was up several times. Mental Status: Appearance/Attitude: Patient is casually dressed, appears tired, makes good eye contact and was cooperative. Behavior: Patient did not exhibit any psychomotor agitation or retardation. Speech/Language: Speech was spontaneous of normal volume and rhythm and she was coherent Thought Process: Patient was goal-directed there was no evidence of loose association or flight of ideas Thought content: Patient denied any auditory hallucinations and states her visual hallucinations are less intense but continue to occur, no delusions or paranoid ideation were elicited. Patient states that she's feeling tired today she didn't sleep well last night but states her appetite has been better. Suicidal/Homicidal Ideation: Patient denied any current suicidal or homicidal ideation Sensorium/Cognition: Patient is alert and oriented to person, place, and time and her recent and remote memory are grossly intact Mood/Affect: Patient's mood is depressed and her affect is blunted Insight/Judgment: Patient's insight and judgment are fair Assessment: Reports that she's feeling tired today she didn't sleep well last night, she states that her visual hallucinations are less intense but they continue to occur at night. Patient reports she is attending groups and activities. Patient states that she is not having any suicidal thoughts and is not feeling more depressed. Plan: Patient will continue on Abilify 10 mg at 7 PM, we'll decrease her Seroquel to 100 mg at bedtime for 2 nights and then discontinue. Patient is no longer receiving Effexor. Patient continues on Lamictal 1 or 50 mg the morning and 200 at bedtime. We'll decrease the patient's Ativan to 0.5 mg twice a day when necessary for anxiety. Patient and I discussed continuing to titrate her medication, patient continues to require hospitalization.
[2017-09-30] MEDS: ARIPiprazole 10 MG TAB PO SCH (18:54)
[2017-09-30] MEDS: QUEtiapine 100 MG TAB PO SCH (20:19)
[2017-10-01] MEDS: ACETAMINOPHEN TAB 325 MG TAB PO PRN ×3 (00:32→14:40)
[2017-10-01] MEDS: lamoTRIgine 100 MG TAB PO SCH ×2 (08:36→20:12)
[2017-10-01] MEDS: POLYETHYLENE GLYCOL 3350 17 GM POWD.PACK PO SCH (08:37)
[2017-10-01] MEDS: traMADol 50 MG TAB PO PRN ×2 (08:37→20:14)
[2017-10-01] MEDS: LISINOPRIL 10 MG TAB PO SCH (08:37)
[2017-10-01] MEDS: DICYCLOMINE 10 MG CAP PO PRN ×2 (08:37→20:55)
[2017-10-01] MEDS: QVAR 40 MCG INHALATION SCH ×2 (09:15→18:58)
--- NOTE | 2017-10-01 11:53 | P.PN ---
Progress Note - Text Progress Note Date: 10/01/17 Interval History: Patient is a 56-year-old female who was seen today and she reports that her joints ache and this is been keeping her awake at night. She reports that she had no visual hallucinations last night. She states that she is not having any racing thoughts and does not feel revved up. She states that she is not feeling depressed or suicidal. Patient slept only about 5 hours last night and she states the pain kept her awake. Mental Status: Appearance/Attitude: Patient is casually dressed, makes eye contact and is cooperative Behavior: Patient does not display any psychomotor agitation or retardation Speech/Language: Patient's speech is spontaneous and normal volume and rhythm and she is coherent Thought Process: Patient is goal-directed there is no evidence of loose association or flight of ideas and she denies racing thoughts Thought Content: Patient denies any auditory or visual hallucinations, no delusions or paranoid ideation were elicited. Patient states she is not feeling revved up nor she feeling depressed but the patient does states she is tired due to her joint pain which kept her up last night. Patient states that her appetite is good. Patient states that she is not having any side effects from the medication. Suicidal/Homicidal Ideation: Patient denies any current suicidal or homicidal ideation Sensorium/Cognition: Patient is alert and oriented to person, place, and time and her recent and remote memory are grossly intact Mood/Affect: Mood is stable and her affect is appropriate Insight/Judgment: Patient's insight and judgment are fair Assessment: Patient reports that she is not feeling revved up or depressed, reports no side effects from the medication but is complaining of pain in her joints keeping her up last night. Patient states that she only slept about 5 hours and feels somewhat tired this morning. Patient states that she is on any suicidal thoughts and feels more stable on the current medication regimen. She reports no side effects from the medication. Patient has been attending groups and activities. Patient states her appetite is good. Plan: Patient will continue on Abilify 10 mg at 7 PM and Lamictal 1 or 50 mg the morning and 200 mg at night and tonight will be a last dose of Seroquel 100 mg and it will be discontinued at that point. Patient and I discussed seeing how she does on the Abilify and Lamictal combination, encourage the patient to use the Tylenol as needed for her joint pain to see if that relieves it. Patient continues to require hospitalization to further stabilize her mood and we discussed possible discharge towards the end of the week.
[2017-10-01] MEDS: ARIPiprazole 10 MG TAB PO SCH (18:24)
[2017-10-01] MEDS: LORazepam 0.5 MG TAB PO PRN (18:24)
[2017-10-01] MEDS: QUEtiapine 100 MG TAB PO SCH (20:12)
[2017-10-02] MEDS: ACETAMINOPHEN TAB 325 MG TAB PO PRN ×4 (02:48→20:05)
[2017-10-02] MEDS: traMADol 50 MG TAB PO PRN ×2 (06:08→21:20)
[2017-10-02 06:42] VITALS: RESP 18
[2017-10-02] MEDS: QVAR 40 MCG INHALATION SCH ×2 (08:30→20:48)
[2017-10-02] MEDS: lamoTRIgine 100 MG TAB PO SCH ×2 (09:24→20:04)
[2017-10-02] MEDS: LISINOPRIL 10 MG TAB PO SCH (09:25)
[2017-10-02] MEDS: POLYETHYLENE GLYCOL 3350 17 GM POWD.PACK PO SCH (09:26)
[2017-10-02] MEDS: DICYCLOMINE 10 MG CAP PO PRN (09:28)
[2017-10-02] MEDS: LORazepam 0.5 MG TAB PO PRN (12:17)
--- NOTE | 2017-10-02 15:22 | P.PN ---
Progress Note - Text Progress Note Date: 10/02/17 Interval History: Patient is a 56-year-old female who was seen today and she reports that she slept about 5 hours last night but then was able to go back to sleep for another hour or so. Patient states that she had no visual hallucinations last night at all. She states that she is not feeling suicidal and her mood has been more stable. She states that her pain is better today she 's been using the Tylenol as needed. Patient states that she is still feeling tired in the morning, her appetite is good. Mental Status: Appearance/Attitude: Patient is casually dressed, makes good eye contact and was cooperative Behavior: Patient does not display any psychomotor agitation or retardation Speech/Language: Patient's speech is spontaneous of normal volume and rhythm and she is coherent Thought Process: Patient is goal-directed there is no evidence of loose association or flight of ideas Thought Content: Patient denies any auditory or visual hallucinations no delusions or paranoid ideation were elicited. Patient states her pain level is better today she slept 5-6 hours last night but states she still feels somewhat tired. She states that her mood is much more stable and she is more positive in her outlook. Suicidal/Homicidal Ideation: Patient denies any current suicidal or homicidal ideation Sensorium/Cognition: She is alert and oriented to person, place, and time and her recent and remote memory are grossly intact Mood/Affect: Patient's mood is stable and her affect is appropriate Insight/Judgment: Patient's insight and judgment are intact Assessment: Patient states that she slept 5-6 hours but still feels slightly tired today, she states her pain is much better she is been using Tylenol but overall thinks it is decreasing. Patient states that she had no visual hallucinations last night. Patient states that she feels her mood is more stable, and reports that she has no side effects from her current medications. Plan: Patient continue on Abilify 10 mg at 7 PM and Lamictal 150 mg the morning and 200 mg at bedtime and Seroquel will be discontinued. Patient and I discussed discharge tomorrow and the patient was agreeable with this that she feels that she is doing much better on the current medications especially as she is no longer having visual hallucinations.
[2017-10-02] MEDS: ARIPiprazole 10 MG TAB PO SCH (19:06)
[2017-10-03] MEDS: ACETAMINOPHEN TAB 325 MG TAB PO PRN (00:49)
[2017-10-03] MEDS: DICYCLOMINE 10 MG CAP PO PRN (05:20)
[2017-10-03] MEDS: POLYETHYLENE GLYCOL 3350 17 GM POWD.PACK PO SCH (06:08)
[2017-10-03 06:49] VITALS: BP 127/95; PULSE 99; TEMP 98.4
[2017-10-03] MEDS: QVAR 40 MCG INHALATION SCH (09:24)
[2017-10-03] MEDS: LORazepam 0.5 MG TAB PO PRN (10:19)
[2017-10-03] MEDS: lamoTRIgine 100 MG TAB PO SCH (10:19)
[2017-10-03] MEDS: LISINOPRIL 10 MG TAB PO SCH (10:19)
--- NOTE | 2017-10-03 10:29 | P.DS ---
Providers Date of admission: 09/24/17 18:11 Expected date of discharge: 10/03/17 Attending physician: Angi Schwarz MD Consults: 09/24/17 19:16 Consult Physician Routine Consulting Provider: Amairani Falcon Consult Reason/Comments: follow up h & P Do you want consulting provider notified?: Yes [facility] Course: Discharge Diagnosis: Bipolar disorder, type I current episode depressed with psychotic features; anxiety disorder not otherwise specified Reason for Admission: Patient is a 56-year-old female who presented to the emergency room reporting hallucinations for 3 weeks and suicidal ideation without a plan. Patient states that her symptoms were worse yesterday with the worst hallucination she states that she was at home and had a bizarre dream about driving a car, but states it was quite vivid and states that she also heard voices her parents talking. She states that she has other visual hallucinations that are shadows or that there is a little boy. Patient states that they've been going on for the last 3 weeks combined with a bad taste in her mouth and off smell. She denies any history of seizure disorder. She states that she does fine for 3 weeks and then has these episodes of visual and auditory hallucinations the last several days. She states that she also feels confused for about 3 hours and then does fine after she rests at night. Patient states that she hasn't been seen by [facility] since December of last year. She states that she also discontinued her Effexor on Saturday after her morning dose because she thought it was causing problems. Patient states that she takes Ativan 1 mg twice a day on a regular basis and states she uses tramadol for in a week and does not take it on a scheduled basis at home. Patient states her symptoms began in 2012 and a prior to that she had no complaints of psychiatric problems nor had she ever been treated for anything. 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 Patient states that in 2012 she became depressed with visual hallucinations wasn't sleeping was feeling tired and had suicidal thoughts with no plan and was admitted here to the hospital on the inpatient psychiatric unit. She states that she was followed at [facility] from that time until 2017. She states that she has had 2 prior admissions one in 2012 and one in June 2016 which was her last admission here. She states in 2017 she was having suicidal thoughts with a plan as well as visual hallucinations again. She then stated that 2 months ago she began a [facility] counseling for therapy. Patient endorses a history of manic episodes stating the first one was in 2010 the lasted for 2 weeks. She describes increased energy decreased sleep and pressured speech and racing thoughts but no impulsive behavior. She states that this alternates with depressive symptoms of crying, decreased concentration and feeling a lack of energy and tired with suicidal ideation. She states that the visual hallucinations occur in either mood phase. She thought her recent visual hallucinations were due to her reaction from Effexor. She states last week she was depressed and this way she felt decent without suicidal thoughts could not explain to me why she voiced suicidal ideation when she came to the hospital. Patient had been on Wellbutrin, Zoloft, Lamictal and Remeron when she was here in 2016 she currently is taking Seroquel extended release 4 mg twice a day, Lamictal 150 mg the morning 200 at bedtime, Effexor 75 mg extended release in the morning and at bedtime and Ativan 1 mg 3 times a day on an as-needed basis. Patient's prescribing his degree was looked up on [employer] and she did feel Ativan 1 mg tablets on August 28 #90 and tramadol 50 mg # 120 filled on August 27. Her prior prescriptions were Ativan #90 on August 01 and tramadol 50 mg tablets #120 on July 25. Patient states that periodically she gets lost when she is driving he needs to call her boyfriend to tell her where she is. Patient states that she attempted suicide 2 times in the past wanted the age of 13 and one at the age of 19 when she took overdoses but received no treatment at that time. Patient also describes getting anxious when she is outside and uses Ativan when she goes shopping or other places gives a vague history of panic attacks. Mental status on Admission: Appearance/Attitude: Patient is dressed casually, makes intermittent eye contact and was cooperative. Behavior: Patient does not exhibit any psychomotor agitation or retardation. Speech/Language: Patient's speech was spontaneous of normal volume and rhythm and she was coherent Thought Process: Patient was goal-directed but did need some verbal redirection to provide information regarding her responses. Patient did not exhibit flight of ideas but was at times tangential Thought Content: Patient states that she hears voices of her parents, she states that she has visual hallucinations about things like when she is driving , she also see as a little boy and shadows at times. No delusional or paranoid ideation was elicited. Patient states that she was feeling fine and then stated that she had not been feeling well for the last several weeks. She also complains of an odd taste in her mouth as well as an odd smell but can't state when this started. Patient denies a seizure disorder history. Patient states that she is not sleeping well and has been feeling tired. Suicidal/Homicidal Ideation: Patient states that she is not currently having any suicidal thoughts or homicidal thoughts Sensorium/Cognition: Patient is alert and oriented to person, place, and time, she did serial sevens with 2 mistakes, she could spell world forwards and backwards she could only remember 2 objects after 5 minutes. Patient also had great difficulty calculating her sons age if he was born in 1978. Mood/Affect: Patient's mood was distressed and her affect was appropriate to her mood Insight/Judgment: Patient's insight and judgment are fair Hospital Course: Patient was admitted on a voluntary basis, placed on routine observation and group and activity therapy were ordered. Patient also had routine laboratory studies as well as a medical consultation. Patient was continued on her medications for her medical problems. Patient and I discussed her medications we decided to continue her Lamictal at 150 mg in the morning 200 mg at bedtime and discussed titrating her off of the Ativan and Seroquel and Effexor and replacing that with Abilify. Patient was agreeable to this and the patient was slowly titrated off of Seroquel and titrated to a dose of 10 mg of Abilify. Patient was also slowly titrated off of Effexor. Patient reported that her visual hallucinations eventually stopped, her thinking improved she was able to concentrate and focus and states that her memory improved. Patient reported no longer feeling depressed, no longer having any suicidal ideation. Patient states that her mood was much more stable and she was participating in groups and activities. Patient was sleeping well at night except for the night prior to her discharge she states because she was excited about returning home. Patient had no anxiety or panic attacks while she was on the unit, she reported no side effects from the current medication regimen. Patient felt that she was ready to return to her own home and will follow-up with outpatient counseling. Patient was continued on Lamictal at her current dose and Abilify 10 mg. Allergies No Known Allergies Allergy (Verified 09/24/17 14:35) Laboratory Last Values WBC 8.4 k/uL (3.8-10.6) 09/25/17 08:21 RBC 4.21 m/uL (3.80-5.40) 09/25/17 08:21 Hgb 12.5 gm/dL (11.4-16.0) 09/25/17 08:21 Hct 39.0 % (34.0-46.0) 09/25/17 08:21 MCV 92.5 fL (80.0-100.0) 09/25/17 08:21 MCH 29.7 pg (25.0-35.0) 09/25/17 08: MCHC 32.1 g/dL (31.0-37.0) 09/25/17 08: RDW 13.0 % (11.5-15.5) 09/25/17 08:21 Plt Count 442 k/uL (150-450) 09/25/17 08:21 Neutrophils % 61 % 09/25/17 08:21 Lymphocytes % 28 % 09/25/17 08:21 Monocytes % 6 % 09/25/17 08:21 Eosinophils % 2 % 09/25/17 08:21 Basophils % 1 % 09/25/17 08:21 Neutrophils # 5.1 k/uL (1.3-7.7) 09/25/17 08:21 Lymphocytes # 2.4 k/uL (1.0-4.8) 09/25/17 08:21 Monocytes # 0.5 k/uL (0-1.0) 09/25/17 08:21 Eosinophils # 0.2 k/uL (0-0.7) 09/25/17 08:21 Basophils # 0.0 k/uL (0-0.2) 09/25/17 08:21 Sodium 140 mmol/L (137-145) 09/25/17 08:21 Potassium 4.4 mmol/L (3.5-5.1) 09/25/17 08:21 Chloride 105 mmol/L (98-107) 09/25/17 08:21 Carbon Dioxide 24 mmol/L (22-30) 09/25/17 08:21 Anion Gap 11 mmol/L 09/25/17 08:21 BUN 9 mg/dL (7-17) 09/25/17 08:21 Creatinine 0.83 mg/dL (0.52-1.04) 09/25/17 08:21 Est GFR (CKD-EPI)AfAm >90 (>60 ml/min/1.73 sqM) 09/25/17 08:21 Est GFR (CKD-EPI)NonAf 80 (>60 ml/min/1.73 sqM) 09/25/17 08:21 Glucose 87 mg/dL (74-99) 09/25/17 08:[address] Glu mg/dL 120 09/25/17 08:21 Hemoglobin A1c 5.8 % (4.0-6.0) 09/25/17 08:21 Calcium 10.0 mg/dL (8.4-10.2) 09/25/17 08:21 Total Bilirubin 0.4 mg/dL (0.2-1.3) 09/25/17 08:21 AST 30 U/L (14-36) 09/25/17 08:21 ALT 26 U/L (9-52) 09/25/17 08:21 Alkaline Phosphatase 78 U/L (38-126) 09/25/17 08:21 Total Protein 7.1 g/dL (6.3-8.2) 09/25/17 08:21 Albumin 4.6 g/dL (3.5-5.0) 09/25/17 08:21 Triglycerides 167 mg/dL (<150) H 09/25/17 08:21 Cholesterol 273 mg/dL (<200) H 09/25/17 08:21 LDL Cholesterol, Calc 179 mg/dL (0-99) H 09/25/17 08:21 HDL Cholesterol 61 mg/dL (40-60) H 09/25/17 08:21 TSH 2.870 mIU/L (0.465-4.680) 09/25/17 08:21 Urine Color Light Yellow 09/27/17 17:00 Urine Appearance Clear (Clear) 09/27/17 17:00 Urine pH 6.5 (5.0-8.0) 09/27/17 17:00 Ur Specific [place] 1.007 (1.001-1.035) 09/27/17 17:00 Urine Protein Negative (Negative) 09/27/17 17:00 Urine Glucose (UA) Negative (Negative) 09/27/17 17:00 Urine Ketones Negative (Negative) 09/27/17 17:00 Urine Blood Negative (Negative) 09/27/17 17:00 Urine Nitrite Negative (Negative) 09/27/17 17:00 Urine Bilirubin Negative (Negative) 09/27/17 17:00 Urine Urobilinogen <2.0 mg/dL (<2.0) 09/27/17 17:00 Ur Leukocyte Esterase Negative (Negative) 09/27/17 17:00 Urine HCG, Qual Not Detected (Not Detectd) 09/27/17 17:00 Urine Opiates Screen Not Detected (NotDetected) 09/27/17 17:00 Ur Oxycodone Screen Not Detected (NotDetected) 09/27/17 17:00 Urine Methadone Screen Not Detected (NotDetected) 09/27/17 17:00 Ur Propoxyphene Screen Not Detected (NotDetected) 09/27/17 17:00 Ur Barbiturates Screen Not Detected (NotDetected) 09/27/17 17:00 U Tricyclic Antidepress Detected (NotDetected) H 09/27/17 17:00 Ur Phencyclidine Scrn Not Detected (NotDetected) 09/27/17 17:00 Ur Amphetamines Screen Not Detected (NotDetected) 09/27/17 17:00 U Methamphetamines Scrn Not Detected (NotDetected) 09/27/17 17:00 U Benzodiazepines Scrn Detected (NotDetected) H 09/27/17 17:00 Urine Cocaine Screen Not Detected (NotDetected) 09/27/17 17:00 U Marijuana (THC) Screen Not Detected (NotDetected) 09/27/17 17:00 Discharge Mental Status: Appearance/Attitude: Patient is casually dressed, makes good eye contact and was cooperative. Behavior: Patient did not display any psychomotor agitation or retardation. Speech/Language: Patient's speech was spontaneous of normal volume and rhythm and she was coherent. Thought Process: Patient was goal-directed there is no evidence of loose association or flight of ideas Thought Content: Patient denied any auditory or visual hallucinations and no delusions or paranoid ideation were elicited. Patient stated that she was feeling more in control, stated that her thinking had cleared, her appetite had improved and her sleep was restful. Suicidal/Homicidal Ideation: Patient denied any current suicidal or homicidal ideation Sensorium/Cognition: Patient was alert and oriented to person, place, and time and she states that her thinking was clear, her concentration and focus had improved and her recent and remote memory were grossly intact Mood/Affect: Patient's mood was stable and her affect was appropriate Insight/Judgment: Patient's insight and judgment were intact Risk Assessment: Patient's risk for self harm is low should the patient remaining sober, follow-up with medication and appointments Discharge Plan: Patient will return to her home, she will continue on her lisinopril, inhaler and Bentyl and patient will continue on Abilify 10 mg at 7 PM and Lamictal 150 mg the morning 200 mg at bedtime. Patient will receive prescriptions for Abilify, Lamictal and lisinopril sent to her pharmacy electronically. Patient states she has sufficient of her other medications at home. Patient stated that she does not need any tramadol. Patient was advised to not continue to use Ativan at home. Patient and I discussed good sleep hygiene and the need for exercise. Patient will also follow up at [facility] and was encouraged to keep her appointment and be compliant with her medication. Patient was advised to avoid all alcohol and drugs. Patient Condition at Discharge: Stable Plan - Discharge Summary Discharge Rx Participant: No New Discharge Prescriptions: New ARIPiprazole [Abilify] 10 mg PO 1900 #14 tab Dicyclomine [Bentyl] 10 mg PO QID PRN cap PRN Reason: Dyspepsia Lisinopril [Zestril] 10 mg PO DAILY #28 tab Continue Polyethylene Glycol 3350 [Miralax] 17 gm PO DAILY Changed lamoTRIgine [LaMICtal] 100 mg PO BID #49 tablet Discontinued QUEtiapine FUMARATE [Seroquel Xr] 400 mg PO BID #60 tab.er.24h lamoTRIgine [LaMICtal] 150 mg PO QAM Lisinopril [Zestril] 10 mg PO DAILY LORazepam [Ativan] 1 mg PO TID PRN PRN Reason: Anxiety traMADol HCL [Ultram] 50 mg PO BID Venlafaxine HCl ER [Effexor Xr] 75 mg PO BID-W/MEALS Discharge Medication List Polyethylene Glycol 3350 [Miralax] 17 gm PO DAILY 04/27/16 [History] ARIPiprazole [Abilify] 10 mg PO 1900 #14 tab 10/03/17 [Rx] Dicyclomine [Bentyl] 10 mg PO QID PRN cap 10/03/17 [Rx] Lisinopril [Zestril] 10 mg PO DAILY #28 tab 10/03/17 [Rx] lamoTRIgine [LaMICtal] 100 mg PO BID #49 tablet 10/03/17 [Rx] Follow up Appointment(s)/Referral(s): Gumaro Parada [Outside] - 10/14/17 3:00 pm (Lina at 300 on 10/14/17 On cancellation list for earlier appointment if one becomes available) Queta Damon MD [Primary Care Provider] - 1-2 days Patient Instructions/Handouts: How to Stop Smoking (GEN), Brief Psychotic Disorder (GEN) Activity/Diet/Wound Care/Special Instructions: Keep your follow appointments as scheduled. Continue your medications as prescribed. No alcohol or street drugs. No access to guns or weapons. Diet and activity as tolerated. If you have any problems call the crisis line at 1- [phone]. Discharge Disposition: HOME SELF-CARE
== END 2017-10-03 12:21 | disposition home or self-care (01) | DRG 885 ==
LOC: EC 13:28 → 3MHU 18:11
PROVIDERS: ADMIT Psychiatry & Neurology Psychiatry; ATTEND Psychiatry & Neurology Psychiatry
DX: F31.5 Bipolar disorder, current episode depressed, severe, with psychotic features (principal); K51.90 Ulcerative colitis, unspecified, without complications; R45.851 Suicidal ideations; F17.200 Nicotine dependence, unspecified, uncomplicated; F41.0 Panic disorder [episodic paroxysmal anxiety]; I10 Essential (primary) hypertension; J44.9 Chronic obstructive pulmonary disease, unspecified; Z79.899 Other long term (current) drug therapy; Z81.8 Family history of other mental and behavioral disorders; Z82.49 Family history of ischemic heart disease and other diseases of the circulatory system; Z82.5 Family history of asthma and other chronic lower respiratory diseases; Z90.710 Acquired absence of both cervix and uterus; Z91.5 Personal history of self-harm; M54.9 Dorsalgia, unspecified; Z87.19 Personal history of other diseases of the digestive system; L65.9 Nonscarring hair loss, unspecified; Z81.1 Family history of alcohol abuse and dependence; K57.90 Diverticulosis of intestine, part unspecified, without perforation or abscess without bleeding; H26.9 Unspecified cataract
CPT/HCPCS: 80053; 80061; 80306; 81003; 81025; 83036; 84443; 85025; 94640; 99285

== ENCOUNTER 2018-01-14 08:00 | Inpatient (IN) | payer MEDICARE ==
--- NOTE | 2018-01-14 08:23 | ED ---
General Adult HPI - General Chief complaint: Psychiatric Symptoms Stated complaint: suicidal Time Seen by Provider: 01/14/18 08:01 Source: patient, EMS, RN notes reviewed Mode of arrival: EMS Limitations: physical limitation - History of Present Illness Initial comments: Patient is a 57-year-old female presented to the emergency room today with a chief complaint of suicidal ideation. Patient states that she's been feeling depressed for last several months. Has been followed up the family doctor. Patient states that symptoms do not seem to be improving. She states that she' s not had any specific plan of harming herself. She denies any homicidal thoughts. She denies any other complaints. Patient denies any recent fever, chills, shortness of breath, chest pain, back pain, abdominal pain, nausea or vomiting, numbness or tingling, headaches or visual changes, or any other complaints. - Related Data Home Medications Medication Instructions Recorded Confirmed Cetirizine HCl 10 mg PO DAILY 01/14/18 01/14/18 Lurasidone [Latuda] 80 mg PO HS 01/14/18 01/14/18 Sertraline [Zoloft] 200 mg PO HS 01/14/18 01/14/18 busPIRone HCl [Buspar] 5 mg PO TID 01/14/18 01/14/18 Allergies Allergy/AdvReac Type Severity Reaction Status Date / Time No Known Allergies Allergy Verified 01/14/18 10:23 Review of Systems ROS Statement: Those systems with pertinent positive or pertinent negative responses have been documented in the HPI. ROS Other: All systems not noted in ROS Statement are negative. Past Medical History Past Medical History: GI Bleed, Hypertension, Osteoarthritis (OA) Additional Past Medical History / Comment(s): GI bleed 2 requiring blood transfusion the last one in December 2014, hypertension on diet control, alopecia, ibs, ulcerative colitis, diffuse diverticulosis, shingles that affected rt eye,cataracts. 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 History of Any Multi-Drug Resistant Organisms: None Reported Past Surgical History: Hysterectomy, Orthopedic Surgery, Tonsillectomy, Tubal Ligation Additional Past Surgical History / Comment(s): ACL repair on the right knee, right second finger severed tendons repaired.tubal ligation Past Anesthesia/Blood Transfusion Reactions: No Reported Reaction Past Psychological History: Anxiety, Bipolar, Depression Smoking Status: Current every day smoker Past Alcohol Use History: None Reported Past Drug Use History: None Reported - Past Family History Father Additional Family Medical History / Comment(s): Father at 75 from COPD. Mother Additional Family Medical History / Comment(s): Mother at age 76 from heart failure and COPD Brother(s) Additional Family Medical History / Comment(s): Patient has 1 brother with history of alcohol abuse currently sober. Patient does not have any sisters. General Exam - General Exam Comments Initial Comments: General: The patient is awake and alert, in no distress, and does not appear acutely ill. Eye: There is normal conjunctiva bilaterally. No signs of icterus. Ears, nose, mouth and throat: There are moist mucous membranes and no oral lesions. Neck: The neck is supple, there is no tenderness or JVD. Cardiovascular: There is a regular rate and rhythm. No murmur, rub or gallop is appreciated. Respiratory: Lungs are clear to auscultation, respirations are non-labored, breath sounds are equal. No wheezes, stridor, rales, or rhonchi. Musculoskeletal: Normal ROM, no tenderness. Neurological: A&O x 3. CN II-XII intact, There are no obvious motor or sensory deficits. Coordination appears grossly intact. Speech is normal. Skin: Skin is warm and dry and no rashes or lesions are noted. Psychiatric: Cooperative. Limitations: physical limitation Course Vital Signs 01/14/18 08:07 Temperature 98.9 F Pulse Rate 104 H Respiratory 18 Rate Blood Pressure 152/97 O2 Sat by Pulse 94 L Oximetry Medical Decision Making - Medical Decision Making Patient seen here by the [facility]. They recommended patient be admitted. Patient is willing to sign herself in. - Lab Data Lab Results 01/14/18 Range/Units 08:25 Urine Opiates Screen Not Detected (NotDetected) Ur Oxycodone Screen Not Detected (NotDetected) Urine Methadone Screen Not Detected (NotDetected) Ur Propoxyphene Screen Not Detected (NotDetected) Ur Barbiturates Screen Not Detected (NotDetected) U Tricyclic Antidepress Not Detected (NotDetected) Ur Phencyclidine Scrn Not Detected (NotDetected) Ur Amphetamines Screen Not Detected (NotDetected) U Methamphetamines Scrn Not Detected (NotDetected) U Benzodiazepines Scrn Detected H (NotDetected) Urine Cocaine Screen Not Detected (NotDetected) U Marijuana (THC) Screen Not Detected (NotDetected) Disposition Clinical Impression: Suicidal ideation Disposition: TRANSFER TO PSYCH HOSP/UNIT Condition: Stable Is patient prescribed a controlled substance at d/c from ED?: No Referrals: Queta Damon MD [Primary Care Provider] - 1-2 days Time of Disposition: 11:31
[2018-01-14 08:57] LABS: Amphetamine Screen,Urine Not Detected (NotDetected); Barbiturate Screen,Urine Not Detected (NotDetected); Benzodiazepines Screen,Urine Detected (NotDetected); Cocaine Screen,Urine Not Detected (NotDetected); Methadone Screen, Urine Not Detected (NotDetected); Opiate Screen,Urine Not Detected (NotDetected); Oxycodone Screen, Urine Not Detected (NotDetected); Phencyclidine Screen,Urine Not Detected (NotDetected); Tricyclic Antidepressant,Urine Not Detected (NotDetected); Urn Cannabinoid Scrn Not Detected (NotDetected)
[2018-01-14] MEDS ORDERED: NICOTINE 14MG/24HR PATCH TRANSDERM STA (14:11)
[2018-01-14] MEDS ORDERED: MAG HYDROX/AL HYDROX/SIMETH 30 ML CUP PO PRN (15:06)
[2018-01-14] MEDS ORDERED: MAGNESIUM HYDROXIDE 2,400 MG/10 ML CUP PO PRN (15:06)
[2018-01-14 15:31] VITALS: BMI 27.6
[2018-01-14] MEDS ORDERED: INFLUENZA VACCINE (6 MOS+) 60 MCG/0.5 ML SYRINGE IM ONE (15:31)
[2018-01-14] MEDS: busPIRone HCl 5 MG TAB PO SCH ×2 (15:44→21:34)
[2018-01-14 18:28] LABS: Basophils % (A) 1 %; Eosinophils # (A) 0.4 k/uL (0-0.7); Eosinophils % (A) 4 %; HCT 40.7 % (34.0-46.0); HGB 12.8 gm/dL (11.4-16.0); Lymphocytes # (A) 3.3 k/uL (1.0-4.8); Lymphocytes % (A) 38 %; MCH 30.4 pg (25.0-35.0); MCHC 31.6 g/dL (31.0-37.0); MCV 96.2 fL (80.0-100.0); Monocytes # (A) 0.6 k/uL (0-1.0); Monocytes % (A) 7 %; Neutrophils # (A) 4.3 k/uL (1.3-7.7); Neutrophils % (A) 49 %; Platelet Count 418 k/uL (150-450); RBC 4.23 m/uL (3.80-5.40); RDW 13.4 % (11.5-15.5); WBC 8.8 k/uL (3.8-10.6)
[2018-01-14 18:39] LABS: ALT 19 U/L (9-52); AST 28 U/L (14-36); Albumin 4.1 g/dL (3.5-5.0); Alkaline Phosphatase 65 U/L (38-126); Anion Gap 8 mmol/L; Blood Urea Nitrogen 12 mg/dL (7-17); Carbon Dioxide 24 mmol/L (22-30); Chloride 107 mmol/L (98-107); Glucose 98 mg/dL (74-99); Potassium 4.4 mmol/L (3.5-5.1); Sodium 139 mmol/L (137-145); Total Bilirubin 0.4 mg/dL (0.2-1.3); Total Protein 6.8 g/dL (6.3-8.2)
[2018-01-15 05:02] LABS: Hemoglobin A1C 5.5 % (4.0-6.0)
[2018-01-15 08:22] LABS: Cholesterol 265 mg/dL (<200); HDL Cholesterol 53 mg/dL (40-60); LDL Cholesterol,Calculated 181 mg/dL (0-99); Triglycerides 156 mg/dL (<150)
[2018-01-15] MEDS: busPIRone HCl 5 MG TAB PO SCH ×3 (08:54→21:42)
[2018-01-15] MEDS: LORATADINE 10 MG TAB PO SCH (08:54)
[2018-01-15] MEDS: SERTRALINE 100 MG TAB PO SCH (08:54)
[2018-01-15] MEDS: NICOTINE 21MG/24HR PATCH TRANSDERM SCH (08:54)
[2018-01-15] MEDS: LURASIDONE 80 MG TAB PO SCH (08:54)
[2018-01-15] MEDS ORDERED: NICOTINE 7MG/24HR PATCH TRANSDERM SCH (09:00)
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
[2018-01-15] MEDS: LORazepam 1 MG TAB PO PRN (20:18)
[2018-01-16] MEDS: LURASIDONE 80 MG TAB PO SCH (08:50)
[2018-01-16] MEDS: NICOTINE 21MG/24HR PATCH TRANSDERM SCH (08:50)
[2018-01-16] MEDS: LORATADINE 10 MG TAB PO SCH (08:50)
[2018-01-16] MEDS: busPIRone HCl 5 MG TAB PO SCH (08:51)
[2018-01-16] MEDS: SERTRALINE 100 MG TAB PO SCH (08:51)
--- NOTE | 2018-01-16 09:19 | P.PN ---
Progress Note - Text Interval history: The patient is found in the hallway she follows me to an interview room. She continues to describe a depressed mood with hopelessness thoughts. She states she doesn't know how she can go on living the way she feels. She indicates she did not sleep well staff recorded she slept 7 hours. Appetite stable. We reviewed her current psychotropic medications and medication options. We decided that we would augment with lithium and discussed the potential benefits and side effects of that medication. We had considered using Trintellix to replace Zoloft but that would not be affordable as it would not be covered once discharged. Mental status exam: The patient is an overweight female appearing her stated age. She is pleasant and cooperative and easily directed. She is dressed in her own clothing she has a disheveled appearance hygiene is adequate. She is wearing eyeglasses. Speech is fluent spontaneous nonpressured. She endorses a sad depressed mood with hopelessness thoughts. She is tearful during the session but reconstitutes. She reports no homicidal ideation intent or plan. She reports no auditory or visual hallucinations she endorses no specific delusions. There is no observed evidence of psychosis. She demonstrates no tangential thinking loose associations or flight of ideas. She remains oriented to person place and date. She demonstrates no verbal or physical aggressiveness she demonstrates no repetitive involuntary movements. Insight and judgment limited. Plan: The patient's will continue on her current psychotropic medication however we will discontinue the BuSpar and augment with lithium carbonate 300 mg in the evening. Baseline labs are reviewed her BUN/creatinine TSH and sodium are all within normal limits. Vital signs reviewed. We will continue to monitor her for safety she is encouraged to fully participate in groups.
[2018-01-16] MEDS: LITHIUM CARBONATE 300 MG CAP PO SCH (21:04)
[2018-01-16] MEDS: LORazepam 1 MG TAB PO PRN (21:04)
[2018-01-16] MEDS: ACETAMINOPHEN TAB 325 MG TAB PO PRN (21:04)
--- NOTE | 2018-01-17 08:42 | P.PN ---
Progress Note - Text Interval history: The patient is found at the front desk associate she follows me to an interview room. She reports that she slept better last night staff recorded she slept 7 hours. Appetite stable. She selectively attend groups. She describes herself as a shut-in at home and finds it challenging been around individuals here. We discussed the importance of socializing and group participation. We reviewed her psychotropic medication she has no questions or concerns at this time. She feels safe in the hospital she is reporting no thoughts of harming herself here. No physical complaints. Mental status exam: The patient's is alert she is dressed in her own clothing hygiene grooming adequate. Eye contact is appropriate. She is pleasant and cooperative. She indicates her mood is better today. She reports feeling safe in the hospital. She is reporting no homicidal ideation intent or plan. She reports no auditory or visual hallucinations or any specific delusions. There is no observed evidence of psychosis. She does not appear hypomanic or manic. Insight and judgment limited. She demonstrates no verbal or physical aggressiveness. She demonstrates no involuntary repetitive movements. Plan: The patient will continue on her current psychotropic medication. We will monitor her for safety and encourage full participation in the milieu. Vital signs reviewed. We will obtain a lithium level after the weekend.
[2018-01-17] MEDS: LORATADINE 10 MG TAB PO SCH (08:47)
[2018-01-17] MEDS: SERTRALINE 100 MG TAB PO SCH (08:47)
[2018-01-17] MEDS: NICOTINE 21MG/24HR PATCH TRANSDERM SCH (08:47)
[2018-01-17] MEDS: LURASIDONE 80 MG TAB PO SCH (08:47)
[2018-01-17] MEDS: ACETAMINOPHEN TAB 325 MG TAB PO PRN (15:32)
[2018-01-17] MEDS: LITHIUM CARBONATE 300 MG CAP PO SCH (20:06)
[2018-01-17] MEDS: LORazepam 1 MG TAB PO PRN (20:08)
[2018-01-18] MEDS: ACETAMINOPHEN TAB 325 MG TAB PO PRN (05:36)
[2018-01-18] MEDS: NICOTINE 21MG/24HR PATCH TRANSDERM SCH (07:55)
[2018-01-18] MEDS: SERTRALINE 100 MG TAB PO SCH (07:55)
[2018-01-18] MEDS: LURASIDONE 80 MG TAB PO SCH (07:55)
[2018-01-18] MEDS: LORATADINE 10 MG TAB PO SCH (07:55)
[2018-01-18] MEDS: LORazepam 1 MG TAB PO PRN ×2 (12:08→21:03)
--- NOTE | 2018-01-18 16:42 | P.PN ---
Progress Note - Text Progress Note Date: 01/18/18 IDENTIFICATION DATA: 56-year-old female admitted to the mental health unit through the emergency room for acute symptoms of depression with hopelessness and suicidal ideation. INTERVAL HISTORY: She reports her crying spells have improved. She states she has slept only two hours last night. She states when she goes home she will be able to sleep better. She is currently wondering if she COULD get something to help her with sleep. She states she hasnt been able to think well. She reports good appetite. She reports going to all her groups. No major behavioral problems reported. MENTAL STATUS EXAMINATION: Appeared stated age. Fair grooming and hygiene. No abnormal movements noted. mood is reported as ok and affect appropriate. speech and thought process was goal directed. denies current auditory or visual hallucinations. denies paranoia. is alert and oriented x 4. denies current suicidal or homicidal ideations. His insight and judgement are improving. ASSESSMENT AND PLAN: She has agreed to take remeron to help her with sleep. Will start 7,5mg of remeron at night. Continue current treatment. Monitor for symptoms.
[2018-01-18] MEDS: LITHIUM CARBONATE 300 MG CAP PO SCH (20:07)
[2018-01-18] MEDS: MIRTAZAPINE 15 MG TAB PO SCH (21:39)
[2018-01-19] MEDS: LURASIDONE 80 MG TAB PO SCH (08:05)
[2018-01-19] MEDS: LORATADINE 10 MG TAB PO SCH (08:05)
[2018-01-19] MEDS: NICOTINE 21MG/24HR PATCH TRANSDERM SCH (08:05)
[2018-01-19] MEDS: SERTRALINE 100 MG TAB PO SCH (08:05)
[2018-01-19] MEDS: ACETAMINOPHEN TAB 325 MG TAB PO PRN (12:59)
[2018-01-19] MEDS: LORazepam 1 MG TAB PO PRN (13:46)
--- NOTE | 2018-01-19 14:47 | P.PN ---
Progress Note - Text Progress Note Date: 01/19/18 IDENTIFICATION DATA: 56-year-old female admitted to the mental health unit through the emergency room for acute symptoms of depression with hopelessness and suicidal ideation. INTERVAL HISTORY: Patient states she slept like a baby yesterday. She was wondering if she is going through panic attacks as she is experiencing shakiness and complains of hand tremors. Noted slight tremors of her right hand she sits with her hands closed in like fist in an attempt to control her tremors and is worried if they are due to her medications. Patient claims to have taken ativan earlier today hoping it will control her shakiness. She says she is used to taking ativan five times a day in the past for anxiety. Patient was advised to remove her nicotine patch at night and was also advised to limit her caffeinated beverages which can also worsen her tremulousness. Will obtain a lithium level tomorrow. Patient was also explained that it will take at least five days for lithium to attain steady state levels and she might notice some improvement and tolerance after that. She can also monitor a log when her tremors are getting worse. She claims having difficulty holding things and says she has spilled her coffee this morning due to her hand tremors. She says she is waiting to go home and currently feels safe going home. She no longer feels hopeless or sad. She denies current suicidal or homicidal ideations. She reports good appetite. No major behavioral problems REported. MENTAL STATUS EXAMINATION: Appeared stated age. Fair grooming and hygiene. No abnormal movements noted. mood is reported as anxious about her hand tremors and affect appropriate. speech and thought process was goal directed. denies current auditory or visual hallucinations. denies paranoia. is alert and oriented x 4. denies current suicidal or homicidal ideations. His insight and judgement are improving. ASSESSMENT AND PLAN: Continue current treatment. Monitor for symptoms. Obtain lithium level tomorrow as she complains of hand tremors and is anxious it might be medication induced. She was advised to remove her nicotine patch at night and was also advised to limit her caffeinated beverages which can also worsen her tremulousness. She was also reassured and explained about the lithium metabolism.
[2018-01-19 16:03] LABS: Appearance,Urine Clear (Clear); Bilirubin,Urine Negative (Negative); Blood,Urine Negative (Negative); Color,Urine Yellow; Glucose,Urine (UA) Negative (Negative); Ketones,Urine Negative (Negative); Leukocyte Esterase,Urine Negative (Negative); Nitrite,Urine Negative (Negative); Protein,Urine Negative (Negative); Specific Gravity,Urine 1.022 (1.001-1.035); Urobilinogen,Urine <2.0 mg/dL (<2.0)
[2018-01-19] MEDS: LITHIUM CARBONATE 300 MG CAP PO SCH (20:16)
[2018-01-19] MEDS: MIRTAZAPINE 15 MG TAB PO SCH (20:17)
[2018-01-20] MEDS: LORATADINE 10 MG TAB PO SCH (08:50)
[2018-01-20] MEDS: NICOTINE 21MG/24HR PATCH TRANSDERM SCH (08:50)
[2018-01-20] MEDS: SERTRALINE 100 MG TAB PO SCH (08:50)
[2018-01-20] MEDS: LURASIDONE 80 MG TAB PO SCH (08:51)
[2018-01-20] MEDS: ACETAMINOPHEN TAB 325 MG TAB PO PRN (10:19)
[2018-01-20] MEDS: LORazepam 1 MG TAB PO PRN (10:19)
--- NOTE | 2018-01-20 11:07 | P.PN ---
Progress Note - Text Interval history: The patient is found in the hallway she follows me to an interview room. She indicates that her mood is doing better. She feels symptoms of anxiety as she feels she would like to go home but worries about what will happen when she goes home. She states that she feels she would transition okay if she was scheduled with her therapist soon enough after discharge. She reports having some shaking of her hand but identifies it is being anxiety she does not feel that it's due to the lithium. She was started on Remeron last evening for sleep she indicates she slept throughout the night. She has been selectively attending group. Mental status exam: The patient is an overweight female appearing her stated age. She remained standing for the session she is dressed in her own clothing. Eye contact is appropriate he is pleasant and cooperative. She indicates she feels safe and she is experiencing no acute suicidal ideation. She is endorsing no homicidal ideation. She describes no auditory or visual hallucinations or any specific delusions. There is no observed evidence of psychosis. She does not appear hypomanic or manic. She remains oriented to person place and date. He demonstrates no involuntary repetitive movements. Plan: The patient will continue on her current psychotropic medication. We will consider if we will maintain the Remeron. A lithium level was ordered for tomorrow morning. We'll consider discharge in the next 1-2 days depending on her progress. We will continue to monitor her for safety.
[2018-01-20] MEDS: LITHIUM CARBONATE 300 MG CAP PO SCH (20:11)
[2018-01-20] MEDS: MIRTAZAPINE 15 MG TAB PO SCH (20:11)
[2018-01-21] MEDS: SERTRALINE 100 MG TAB PO SCH (08:35)
[2018-01-21] MEDS: NICOTINE 21MG/24HR PATCH TRANSDERM SCH (08:35)
[2018-01-21] MEDS: LURASIDONE 80 MG TAB PO SCH (08:35)
[2018-01-21] MEDS: LORATADINE 10 MG TAB PO SCH (08:35)
[2018-01-21] MEDS: LORazepam 1 MG TAB PO PRN ×2 (08:43→19:39)
--- NOTE | 2018-01-21 09:48 | P.PN ---
Progress Note - Text Interval history: The patient is found in group she follows me to an interview room. She indicates her mood is awful today. She reports not sleeping well last night staff reported she slept 6 hours. Her appetite stable. She has been attending groups. We discussed that she is having some concern about being discharged. She states "I just don't want the whole cycle to start over again". Mental status exam: Initially the patient has a dysphoric affect as the interview progresses her affect brightens. Eye contact is appropriate speech is fluent spontaneous nonpressured. She is dressed in her own clothing hygiene is adequate she is mildly disheveled. She feels safe in the hospital she is endorsing no acute suicidal or homicidal ideation intent or plan. She reports having some hopeless thoughts this morning but feels they are improving already. She endorses no auditory or visual hallucinations or any specific delusions. There is no observed evidence of psychosis. She does not demonstrate any tangential thinking loose associations or flight of ideas. She does not appear hypomanic or manic. There is no verbal or physical aggressiveness demonstrated there is no observed involuntary repetitive movements. Plan: The patient continues to clinically stabilize we will anticipate a discharge tomorrow after her support meeting at 1 PM. She will continue on her current psychotropic medications we are awaiting lab results regarding her lithium level. We will continue to monitor her for safety she is encouraged to continue participating in the milieu
[2018-01-21 11:20] LABS: Lithium 0.3 mmol/L
[2018-01-21] MEDS: ACETAMINOPHEN TAB 325 MG TAB PO PRN (19:36)
[2018-01-21] MEDS: MIRTAZAPINE 15 MG TAB PO SCH (21:26)
[2018-01-21] MEDS: LITHIUM CARBONATE 300 MG CAP PO SCH (21:28)
[2018-01-22 07:15] VITALS: PULSE 77; RESP 18; TEMP 98.1
[2018-01-22] MEDS: LORATADINE 10 MG TAB PO SCH (08:36)
[2018-01-22] MEDS: SERTRALINE 100 MG TAB PO SCH (08:36)
[2018-01-22] MEDS: NICOTINE 21MG/24HR PATCH TRANSDERM SCH (08:36)
[2018-01-22] MEDS: LURASIDONE 80 MG TAB PO SCH (08:36)
[2018-01-22] MEDS: LORazepam 1 MG TAB PO PRN (08:37)
[2018-01-22 08:56] VITALS: BP 124/77
--- NOTE | 2018-01-22 10:00 | P.DS ---
Providers Date of admission: 01/14/18 14:31 Expected date of discharge: 01/22/18 Attending physician: Slick Lawler Consults: 01/14/18 15:06 Consult Physician Routine Consulting Provider: Alex Espinal Consult Reason/Comments: H&P for mental admission Do you want consulting provider notified?: Yes Primary care physician: Queta Damon - Discharge Diagnosis(es) (1) Depression Current Visit: No Status: Acute Priority: High (2) Anxiety Current Visit: Yes Status: Acute Priority: Medium Hospital Course: Brief summary of admission note: This patient is a 57-year-old female who was admitted to the mental health unit through the emergency room for acute symptoms of depression with hopelessness thinking and suicidal ideation. The patient presented stating her mood was markedly depressed. She indicated she did not want to live anymore and things were just too hard. She describes having no energy to get out of bed she did not want to take care of herself. She reported excessive sleep up to 20 hours a day. She reported tearfulness anhedonia and poor concentration. Due to her excessive sleeping she had not been fully complying with her psychotropic medication. For full details please refer to my psychiatric evaluation dated 01/15/2018. Summary of hospital course: The patient was admitted to the mental health unit voluntarily. We reviewed her presenting symptoms and treatment options. We continued her Latuda and Zoloft. The BuSpar was discontinued. We decided to add lithium 300 mg at bedtime as an augmentation strategy for her depression and mood instability. Labs were drawn yesterday her lithium level was 0.3 BUN/ creatinine creatinine remain within normal limits. She participated in the milieu she reported a progressive improvement of symptoms while here. She is clearly able to attend to her activities of daily living. We discussed goals in terms of working with her individual therapist. We identified personality disorder traits that contribute to her presentation here. She was seen by internal medicine for routine history and physical exam. Social work has met with her several times to complete a psychosocial assessment and for discharge planning purposes. At this time the patient feels safe to return home and to continue her care as an outpatient. Mental status exam: The patient is a female appearing her stated age. Hygiene and grooming are adequate. Eye contact is appropriate. Speech is fluent spontaneous nonpressured. She reports her mood is good today her affect is bright and congruent with reported mood. She reports no hopelessness thinking and reports no suicidal ideation intent or plan. She reports no auditory or visual hallucinations or any specific delusions. There is no observed evidence of psychosis. She demonstrates no circumstantial thinking tangential thinking loose associations or flight of ideas. She does not appear hypomanic or manic. She demonstrates no verbal or physical aggressiveness she demonstrates no involuntary repetitive movements. Insight and judgment have improved. She remains oriented to person place and date. Impressions: 1. Depression unspecified, rule out bipolar depression versus major depressive disorder, anxiety unspecified Plan: The patient will be discharged from the mental health unit today to return home. She will continue working with her outpatient psychiatrist Dr. Rahman and her established therapist. She will be discharged on Zoloft 200 mg daily, Latuda 80 mg daily, Remeron 7.5 mg at bedtime, lithium 300 mg at bedtime. The Remeron was started over this past weekend by a covering physician as the patient complained of insomnia. She is instructed to discontinue the medication if she is able to sleep sufficiently at home as we would like to try to minimize the number of psychotropic medications she is receiving if possible. There is no imminent safety risk the patient is appropriate for transition back to outpatient care. She is instructed to return to the hospital any acute safety concerns. Patient Condition at Discharge: Stable Plan - Discharge Summary Discharge Rx Participant: No New Discharge Prescriptions: New Acetaminophen Tab [Tylenol] 650 mg PO Q4HR PRN #30 tab PRN Reason: Pain/Discomfort [place] Carbonate 300 mg PO HS #30 cap Mirtazapine [Remeron] 7.5 mg PO HS #15 tab Nicotine 21Mg/24Hr Patch [Habitrol] 1 patch TRANSDERM DAILY #10 patch Continue Cetirizine HCl 10 mg PO DAILY Lurasidone [Latuda] 80 mg PO HS #30 tab Sertraline [Zoloft] 200 mg PO HS #60 tab Discontinued busPIRone HCl [Buspar] 5 mg PO TID Discharge Medication List Cetirizine HCl 10 mg PO DAILY 01/14/18 [History] Acetaminophen Tab [Tylenol] 650 mg PO Q4HR PRN #30 tab 01/22/18 [Rx] [place] Carbonate 300 mg PO HS #30 cap 01/22/18 [Rx] Lurasidone [Latuda] 80 mg PO HS #30 tab 01/22/18 [Rx] Mirtazapine [Remeron] 7.5 mg PO HS #15 tab 01/22/18 [Rx] Nicotine 21Mg/24Hr Patch [Habitrol] 1 patch TRANSDERM DAILY #10 patch 01/22/18 [ Rx] Sertraline [Zoloft] 200 mg PO HS #60 tab 01/22/18 [Rx] Follow up Appointment(s)/Referral(s): Psychiatry,Venkata [Other] - 01/28/18 1:20 pm (Dr Rahman ) Queta Damon MD [Primary Care Provider] - 1-2 days Patient Instructions/Handouts: Bipolar Disorder (GEN), Depression (GEN), Suicide Prevention (GEN) Activity/Diet/Wound Care/Special Instructions: Activity and diet as tolerated. Avoid the use of street drugs and alcohol. Take all medications as prescribed. When you are in need of refills on your medications please contact your medical provider and/or outpatient psychiatrist to have this done. Please go to scheduled outpatient appointment for aftercare treatment. If symptoms return or become worse, call the crisis line at [phone] and/or go to the nearest emergency room for evaluation.
== END 2018-01-22 13:30 | disposition home or self-care (01) | DRG 881 ==
LOC: EC 08:00 → 3MHU 14:31
PROVIDERS: ADMIT Psychiatry & Neurology Psychiatry; ATTEND Psychiatry & Neurology Psychiatry
DX: F32.9 Major depressive disorder, single episode, unspecified (principal); R45.851 Suicidal ideations; F17.200 Nicotine dependence, unspecified, uncomplicated; F41.9 Anxiety disorder, unspecified; F60.9 Personality disorder, unspecified; G47.00 Insomnia, unspecified; I10 Essential (primary) hypertension; J44.9 Chronic obstructive pulmonary disease, unspecified; K58.9 Irritable bowel syndrome, unspecified; G89.29 Other chronic pain; H26.9 Unspecified cataract; K57.90 Diverticulosis of intestine, part unspecified, without perforation or abscess without bleeding; L65.9 Nonscarring hair loss, unspecified; M19.90 Unspecified osteoarthritis, unspecified site; M54.9 Dorsalgia, unspecified; R25.1 Tremor, unspecified; Z90.710 Acquired absence of both cervix and uterus; Z79.899 Other long term (current) drug therapy; Z81.8 Family history of other mental and behavioral disorders; Z82.49 Family history of ischemic heart disease and other diseases of the circulatory system; Z82.5 Family history of asthma and other chronic lower respiratory diseases; Z81.1 Family history of alcohol abuse and dependence
CPT/HCPCS: 80053; 80061; 80178; 80306; 81003; 82075; 82565; 83036; 84443; 84520; 85025; 90686; 99285

== ENCOUNTER → 2018-04-24 | Outpatient (CLI) | payer MEDICARE ==
[2018-04-24 20:30] LABS: Albumin 4.2 g/dL (3.80-4.90); Albumin/Globulin Ratio 2.63 (1.60-3.17); Anion Gap 8.3 mmol/L (4.00-12.00); Calcium 9.6 mg/dL (8.7-10.3); Carbon Dioxide 27.7 mmol/L (21.6-31.8); Globulin 1.6 g/dL (1.6-3.3); LDL Cholesterol,Calculated 79.4 mg/dL (0.0-131.0); Potassium 4.9 mmol/L (3.5-5.5); Total Bilirubin 0.1 mg/dL (0.2-1.2); Total Protein 5.8 g/dL (6.2-8.2); VLDL Calculation 52.6 mg/dL (5.00-40.00)
== END | disposition home or self-care (01) ==
LOC: LABWHC1 10:40
DX: I10 Essential (primary) hypertension (principal)
CPT/HCPCS: 36415; 80053; 80061; 84443

== ENCOUNTER 2018-05-21 10:14 | Day surgery (SDC) | payer MEDICARE ==
[2018-05-20 10:52] VITALS: BMI 29.1
[~2018-05-21 10:14] MED LIST: LACTATED RINGERS 1,000 ML IV SCH
[2018-05-21 11:40] VITALS: RESP 18; TEMP 98.4
[2018-05-21] MEDS ORDERED: LIDOCAINE 1% 20 ML VIAL (10MG/ML) FOR IV START INTRADERMA ONE (11:45)
[2018-05-21] MEDS ORDERED: PROPOFOL 10 MG/ML 20 ML VIAL IV ONE (12:06)
--- NOTE | 2018-05-21 12:20 | P.PCN ---
Date of Procedure: 05/21/18 Procedure(s) Performed: BRIEF HISTORY: Patient is a 57-year-old, pleasant, white female, scheduled for an upper endoscopy as a part of value should of intermittent dysphagia to solids for the last few months duration.. PROCEDURE PERFORMED: Esophagogastroduodenoscopy with biopsy. PREOPERATIVE DIAGNOSIS: Intermittent dysphagia to solids. IV sedation per anesthesia. PROCEDURE: After informed consent was obtained, the patient was brought into the endoscopy unit. IV sedation was administered by Anesthesia under continuous monitoring. Initially the Olympus GIF-140 video endoscope was inserted into the mouth. Esophagus intubated without any difficulty. It was gradually advanced into the stomach and duodenum and carefully examined. The bulb and the second part of the duodenum appeared normal. The scope at this time was withdrawn to the stomach, adequately insufflated with air, and upon careful examination, mucosa of the antrum, patchy areas of erythema and biopsies were done from this area. The body, cardia and the fundus appeared normal. The scope was then withdrawn into the esophagus. Small sliding Hiatal hernia noted. The GE junction was located at 39 cm from the incisors. There was a distal esophageal Schatzki's ring identified which was dilated using 18-20 mm TTS balloon as sequ ential fashion for 90 seconds. The esophagus appeared normal. There were no erosions or ulcerations seen. Biopsies were done from the distal esophagus and the patient tolerated the procedure well. IMPRESSION: 1. Distal esophageal Schatzki's ring status post balloon dilation using 18-20 mm TTS balloon. 2. Small hiatal hernia 3. Mild antral gastritis. RECOMMENDATIONS: The findings of this examination were discussed with the patient as well as a family. She was advised to follow with the biopsy results.. She'll be seen in office in 3-4 weeks
[2018-05-21 12:52] VITALS: BP 125/80; PULSE 90
== END 2018-05-21 13:14 | disposition home or self-care (01) ==
LOC: ORWHC2ENDO 10:14
PROVIDERS: ATTEND Internal Medicine Gastroenterology
DX: K22.2 Esophageal obstruction (principal); K44.9 Diaphragmatic hernia without obstruction or gangrene; K29.50 Unspecified chronic gastritis without bleeding; Z79.899 Other long term (current) drug therapy; I10 Essential (primary) hypertension; J44.9 Chronic obstructive pulmonary disease, unspecified; Z87.891 Personal history of nicotine dependence; K21.9 Gastro-esophageal reflux disease without esophagitis; Z87.19 Personal history of other diseases of the digestive system; Z79.51 Long term (current) use of inhaled steroids
CPT/HCPCS: 88305; 43239; 43249; J2704; C1726

== ENCOUNTER 2018-07-16 13:47 | Inpatient (IN) | payer MEDICARE ==
--- NOTE | 2018-07-16 14:08 | ED ---
General Adult HPI - General Chief complaint: Psychiatric Symptoms Stated complaint: MENTAL HEALTH Time Seen by Provider: 07/16/18 13:56 Source: patient, EMS Mode of arrival: EMS Limitations: no limitations - History of Present Illness Initial comments: Dictation was produced using [employer] dictation software. please excuse any grammatical, word or spelling errors. Chief Complaint: 57-year-old female past medical history of psychiatric disease presents with suicidal ideation. History of Present Illness: She 7-year-old female she has past medical history of psychiatric disease she was at her psychiatrist's office for reevaluation. Patient states she's been feeling suicidal. Over the last couple weeks she's been on medication to try and curb her suicidal ideation. She was reevaluated by her psychiatrist told him to the emergency department for suicidal ideation. Patient states she wants to drive her car in front of a semitruck. She states she thought about it on multiple occasions over having done it. Other complaints at this time. The ROS documented in this emergency department record has been reviewed and confirmed by me. Those systems with pertinent positive or negative responses have been documented in the HPI. All other systems are other negative and/or noncontributory. PHYSICAL EXAM: General Impression: Alert and oriented x3, not in acute distress HEENT: Normocephalic atraumatic, extra-ocular movements intact, pupils equal and reactive to light bilaterally, mucous membranes moist. Cardiovascular: Heart regular rate and rhythm, S1&S2 audible, no murmurs, rubs or gallops Chest: Lungs clear to auscultation bilaterally, no rhonchi, no wheeze, no rales Abdomen: Bowel sounds present, abdomen soft, non-tender, non-distended, no organomegaly Musculoskeletal: Pulses present and equal in all extremities, no peripheral edema Motor: no focal deficits noted Neurological: CN II-XII grossly intact, no focal motor or sensory deficits noted Skin: Intact with no visualized rashes Psych: Normal affect and mood ED course: 57-year-old female multiple comorbidities presents with suicidal ideation. Patient has no medical complaints at this time patient breath alcohol test is negative. Vital signs upon arrival are within acceptable limits. Medically cleared for EPS evaluation. She is seen and evaluated by EPS. They recommend inpatient psychiatric admission. - Related Data Home Medications Medication Instructions Recorded Confirmed Gabapentin [Neurontin] 100 mg PO BID 05/20/18 07/16/18 LORazepam [Ativan] 1 mg PO TID PRN 05/20/18 07/16/18 Omeprazole [PriLOSEC] 20 mg PO AC-BRKFST 05/20/18 07/16/18 Sertraline [Zoloft] 100 mg PO BID 05/20/18 07/16/18 [place] Carbonate 300 mg PO BID 07/16/18 07/16/18 Lurasidone [Latuda] 20 mg PO HS 07/16/18 07/16/18 traZODone HCL 150 mg PO HS 07/16/18 07/16/18 Previous Rx's Medication Instructions Recorded Lurasidone [Latuda] 80 mg PO HS #30 tab 01/22/18 Allergies Allergy/AdvReac Type Severity Reaction Status Date / Time No Known Allergies Allergy Verified 07/16/18 14:23 Review of Systems ROS Statement: Those systems with pertinent positive or pertinent negative responses have been documented in the HPI. ROS Other: All systems not noted in ROS Statement are negative. Past Medical History Past Medical History: COPD, GI Bleed, Hypertension, Osteoarthritis (OA) Additional Past Medical History / Comment(s): GI bleed 2 requiring blood transfusion the last one in December 2014, alopecia, ibs, ulcerative colitis, diffuse diverticulosis, shingles that affected rt eye,cataracts. History of Any Multi-Drug Resistant Organisms: None Reported Past Surgical History: Orthopedic Surgery, Tonsillectomy, Tubal Ligation Additional Past Surgical History / Comment(s): ACL repair on the right knee, right second finger severed tendons repaired.tubal ligation Past Anesthesia/Blood Transfusion Reactions: No Reported Reaction Past Psychological History: Anxiety, Bipolar, Depression, PTSD Smoking Status: Current every day smoker Past Alcohol Use History: None Reported Past Drug Use History: None Reported - Past Family History Father Additional Family Medical History / Comment(s): Father at 75 from COPD. Mother Additional Family Medical History / Comment(s): Mother at age 76 from heart failure and COPD Brother(s) Additional Family Medical History / Comment(s): Patient has 1 brother with history of alcohol abuse currently sober. Patient does not have any sisters. General Exam Limitations: no limitations Course Vital Signs 07/16/18 07/16/18 07/16/18 13:51 14:31 14:33 Temperature 98.3 F Pulse Rate 139 H 106 H Respiratory 20 16 Rate Blood Pressure 160/99 120/84 O2 Sat by Pulse 96 96 Oximetry Medical Decision Making - Lab Data Lab Results 07/16/18 Range/Units 15:38 Urine Opiates Screen Not Detected (NotDetected) Ur Oxycodone Screen Not Detected (NotDetected) Urine Methadone Screen Not Detected (NotDetected) Ur Propoxyphene Screen Not Detected (NotDetected) Ur Barbiturates Screen Not Detected (NotDetected) U Tricyclic Antidepress Detected H (NotDetected) Ur Phencyclidine Scrn Not Detected (NotDetected) Ur Amphetamines Screen Not Detected (NotDetected) U Methamphetamines Scrn Not Detected (NotDetected) U Benzodiazepines Scrn Detected H (NotDetected) Urine Cocaine Screen Not Detected (NotDetected) U Marijuana (THC) Screen Not Detected (NotDetected) Disposition Clinical Impression: Suicidal behavior Disposition: ADMITTED IP TO THIS HOSP Condition: Fair Referrals: Jacinto Galvan DO [Primary Care Provider] - 1-2 days Decision Time: 16:35
[2018-07-16 15:58] LABS: Amphetamine Screen,Urine Not Detected (NotDetected); Benzodiazepines Screen,Urine Detected (NotDetected); Cocaine Screen,Urine Not Detected (NotDetected); Opiate Screen,Urine Not Detected (NotDetected); Phencyclidine Screen,Urine Not Detected (NotDetected); Tricyclic Antidepressant,Urine Detected (NotDetected); Urn Cannabinoid Scrn Not Detected (NotDetected)
[2018-07-16 15:59] LABS: Barbiturate Screen,Urine Not Detected (NotDetected); Methadone Screen, Urine Not Detected (NotDetected); Oxycodone Screen, Urine Not Detected (NotDetected)
[2018-07-16] MEDS ORDERED: MAGNESIUM HYDROXIDE 2,400 MG/10 ML CUP PO PRN (16:42)
[2018-07-16] MEDS ORDERED: MAG HYDROX/AL HYDROX/SIMETH 30 ML CUP PO PRN (16:42)
[2018-07-16] MEDS ORDERED: ACETAMINOPHEN TAB 325 MG TAB PO PRN (16:42)
[2018-07-16] MEDS: NICOTINE 14MG/24HR PATCH TRANSDERM SCH (18:05)
[2018-07-16] MEDS ORDERED: LURASIDONE 20 MG TAB PO SCH (21:00)
[2018-07-16] MEDS: LITHIUM CARBONATE 300 MG CAP PO SCH (22:06)
[2018-07-16] MEDS: LURASIDONE 80 MG TAB PO SCH (22:06)
[2018-07-16] MEDS: GABAPENTIN 100 MG CAP PO SCH (22:06)
[2018-07-16] MEDS: SERTRALINE 100 MG TAB PO SCH (22:06)
[2018-07-16] MEDS: traZODone HCL 50 MG TAB PO SCH (22:07)
[2018-07-16 23:14] LABS: Appearance,Urine Clear (Clear); Bilirubin,Urine Negative (Negative); Blood,Urine Negative (Negative); Color,Urine Yellow; Glucose,Urine (UA) Negative (Negative); Ketones,Urine Trace (Negative); Leukocyte Esterase,Urine Negative (Negative); Nitrite,Urine Negative (Negative); PH, Urine 5.5 (5.0-8.0); Protein,Urine Trace (Negative); Specific Gravity,Urine 1.035 (1.001-1.035)
[2018-07-17 02:40] LABS: Hemoglobin A1C 5.6 % (4.0-6.0)
[2018-07-17] MEDS: GABAPENTIN 100 MG CAP PO SCH (09:18)
[2018-07-17] MEDS: NICOTINE 14MG/24HR PATCH TRANSDERM SCH (09:18)
[2018-07-17] MEDS: PANTOPRAZOLE 40 MG TABLET PO SCH (09:18)
[2018-07-17] MEDS: SERTRALINE 100 MG TAB PO SCH ×2 (09:18→21:41)
[2018-07-17] MEDS: LITHIUM CARBONATE 300 MG CAP PO SCH ×2 (09:18→21:40)
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
[2018-07-17 11:40] LABS: Basophils # (A) 0.1 k/uL (0-0.2); Basophils % (A) 1 %; Eosinophils # (A) 0.5 k/uL (0-0.7); Eosinophils % (A) 4 %; HCT 43.7 % (34.0-46.0); HGB 14.6 gm/dL (11.4-16.0); Lymphocytes # (A) 2.6 k/uL (1.0-4.8); Lymphocytes % (A) 20 %; MCH 31.5 pg (25.0-35.0); MCHC 33.3 g/dL (31.0-37.0); MCV 94.6 fL (80.0-100.0); Mean Platelet Volume 7.6; Monocytes # (A) 0.8 k/uL (0-1.0); Monocytes % (A) 6 %; Neutrophils # (A) 9.4 k/uL (1.3-7.7); Neutrophils % (A) 70 %; Platelet Count 457 k/uL (150-450); RBC 4.61 m/uL (3.80-5.40); RDW 14.4 % (11.5-15.5); WBC 13.5 k/uL (3.8-10.6)
[2018-07-17 12:13] LABS: ALT 19 U/L (9-52); AST 29 U/L (14-36); Alkaline Phosphatase 73 U/L (38-126); Anion Gap 9 mmol/L; Bilirubin, Delta 0.3 mg/dL (0.0-0.2); Bilirubin,Unconjugated 0.2 mg/dL (0.0-1.1); Blood Urea Nitrogen 9 mg/dL (7-17); Calcium 10.5 mg/dL (8.4-10.2); Carbon Dioxide 24 mmol/L (22-30); Chloride 105 mmol/L (98-107); Cholesterol 291 mg/dL (<200); Glucose 91 mg/dL (74-99); HDL Cholesterol 56 mg/dL (40-60); LDL Cholesterol,Calculated 192 mg/dL (0-99); Potassium 4.6 mmol/L (3.5-5.1); Sodium 138 mmol/L (137-145); Total Bilirubin 0.5 mg/dL (0.2-1.3); Total Protein 7.7 g/dL (6.3-8.2); Triglycerides 214 mg/dL (<150)
[2018-07-17] MEDS: LORazepam 1 MG TAB PO PRN (16:02)
[2018-07-17] MEDS ORDERED: ALBUTEROL INHALER 60 PUFF/8 GM INHALER INHALATION PRN (18:52)
[2018-07-17] MEDS: ATORVASTATIN 40 MG TAB PO SCH (21:40)
[2018-07-17] MEDS: LURASIDONE 80 MG TAB PO SCH (21:40)
[2018-07-17] MEDS: traZODone HCL 50 MG TAB PO SCH (21:41)
[2018-07-17] MEDS: BUDESONIDE 0.5 MG/2 ML NEBU INHALATION SCH (22:12)
[2018-07-18] MEDS: LORazepam 1 MG TAB PO PRN ×2 (07:17→14:09)
[2018-07-18] MEDS: PANTOPRAZOLE 40 MG TABLET PO SCH (07:49)
--- NOTE | 2018-07-18 09:01 | P.PN ---
Progress Note - Text Interval history: The patient is found in her room she follows me to an interview room. She states that her mood is more depressed today. She states that she was tearful yesterday. One of her concerns continues to be that she feels unproductive at home. We spent some time discussing opportunities she might seek out to avoid feelings of stagnation which will precipitate depression. She indicated that she has been attending groups. She has no questions or concerns regarding medication at this time. Mental status exam: The patient is alert she is pleasant cooperative. She is mildly disheveled hygiene is adequate she is dressed in her own clothing. She describes a depressed mood she initially appears dysphoric. Speech is fluent spontaneous nonpressured. She reports ongoing hopeless thoughts. In terms of suicidal ideation she feels safe in the hospital. She is reporting no thoughts of harming others. She endorses no auditory or visual hallucinations or specific delusions. She demonstrates no verbal or physical aggressiveness no involuntary repetitive movements. She maintains a dysphoric affect. Plan: The patient will continue on her current psychotropic medication. She is challenged to continue thinking of strategies to occupy her time once discharged. She is encouraged to continue working on other coping skill development with group activities. Vital signs reviewed. We will continue to monitor her for safety.
[2018-07-18 09:16] LABS: HCT 40.5 % (34.0-46.0); HGB 13.1 gm/dL (11.4-16.0); MCH 30.6 pg (25.0-35.0); MCHC 32.3 g/dL (31.0-37.0); MCV 94.7 fL (80.0-100.0); Mean Platelet Volume 7.5; Platelet Count 421 k/uL (150-450); RBC 4.28 m/uL (3.80-5.40); WBC 10.2 k/uL (3.8-10.6)
[2018-07-18] MEDS: SERTRALINE 100 MG TAB PO SCH ×2 (09:28→19:57)
[2018-07-18] MEDS: LITHIUM CARBONATE 300 MG CAP PO SCH ×2 (09:28→19:57)
[2018-07-18] MEDS: NICOTINE 14MG/24HR PATCH TRANSDERM SCH (09:29)
[2018-07-18] MEDS: BUDESONIDE 0.5 MG/2 ML NEBU INHALATION SCH ×2 (09:45→20:00)
[2018-07-18] MEDS: LURASIDONE 80 MG TAB PO SCH (19:57)
[2018-07-18] MEDS: ATORVASTATIN 40 MG TAB PO SCH (19:57)
[2018-07-18] MEDS: traZODone HCL 50 MG TAB PO SCH (19:58)
[2018-07-19] MEDS: PANTOPRAZOLE 40 MG TABLET PO SCH (07:50)
[2018-07-19] MEDS: NICOTINE 14MG/24HR PATCH TRANSDERM SCH (09:52)
[2018-07-19] MEDS: SERTRALINE 100 MG TAB PO SCH ×2 (09:52→21:20)
[2018-07-19] MEDS: LITHIUM CARBONATE 300 MG CAP PO SCH ×2 (09:52→21:19)
[2018-07-19] MEDS: BUDESONIDE 0.5 MG/2 ML NEBU INHALATION SCH ×2 (11:03→21:00)
[2018-07-19] MEDS: LORazepam 1 MG TAB PO PRN ×2 (11:06→18:33)
--- NOTE | 2018-07-19 16:53 | P.PN ---
Progress Note - Text Progress Note Date: 07/19/18 IDENTIFICATION DATA: This patient is a 57-year-old female was admitted to the mental health unit through the emergency room for symptoms of depression with suicidal ideation. INTERVAL HISTORY: Patient reports feeling sad about her current living situation. She claims jorge leny to nurses on the unit have given her some ideas and hope. She reports to have slept well yesterday. She reports to have been eating well here and claims to have lost weight due to not eating well prior to her admission. She reports to have walked out of the group this morning as she was unable to keep up with the fast pace of questions being asked about family [employer] game show. MENTAL STATUS EXAMINATION: Patient appears stated age in fair grooming and hygiene. maintains good eye contact. No abnormal movements noted. speech and thought process are linear and goal directed. mood is reported as sad and affect constricted. Denies current auditory or visual hallucinations . denies paranoid ideations. The patient is alert and oriented 4 and in no apparent distress. Denies suicidal or homicidal ideation. insight and judgment are improving ASSESSMENT Major depressive disorder recurrent severe without psychosis PLAN: continue on [place], latuda, zoloft and trazadone.
[2018-07-19] MEDS: ATORVASTATIN 40 MG TAB PO SCH (21:19)
[2018-07-19] MEDS: LURASIDONE 80 MG TAB PO SCH (21:19)
[2018-07-19] MEDS: traZODone HCL 50 MG TAB PO SCH (21:20)
[2018-07-20 06:47] VITALS: RESP 14
[2018-07-20] MEDS: LITHIUM CARBONATE 300 MG CAP PO SCH ×2 (09:09→21:27)
[2018-07-20] MEDS: NICOTINE 14MG/24HR PATCH TRANSDERM SCH (09:09)
[2018-07-20] MEDS: SERTRALINE 100 MG TAB PO SCH ×2 (09:09→21:27)
[2018-07-20] MEDS: PANTOPRAZOLE 40 MG TABLET PO SCH (09:09)
[2018-07-20] MEDS: BUDESONIDE 0.5 MG/2 ML NEBU INHALATION SCH ×2 (10:09→20:27)
[2018-07-20] MEDS: LORazepam 1 MG TAB PO PRN ×2 (12:00→19:27)
--- NOTE | 2018-07-20 19:59 | P.PN ---
Progress Note - Text Progress Note Date: 07/20/18 IDENTIFICATION DATA: This patient is a 57-year-old female was admitted to the mental health unit through the emergency room for symptoms of depression with suicidal ideation. INTERVAL HISTORY: Patient reports feeling sad and hopeless about life in general and says if she goes home she might do something to herself. She reports no motivation and reports spending most of the time crying. She reports suicidal ideations with no current active plan. She reports good sleep with trazadone. She reports good appetite. Reports feeling that others talking about her all the time. MENTAL STATUS EXAMINATION: Patient appears stated age in fair grooming and hygiene. maintains good eye contact. No abnormal movements noted. speech and thought process are linear and goal directed. mood is reported as sad and affect constricted. Reports auditory hallucinations. Denies visual hallucinations .Reports paranoid ideations. The patient is alert and oriented 4. Denies suicidal or homicidal ideation. insight and judgment are limited ASSESSMENT Major depressive disorder recurrent severe without psychosis PLAN: Will increase morning dose of Zoloft to 125mg po daily, continue evening dose of zoloft continue on [place], latuda, and trazadone.
[2018-07-20] MEDS: LURASIDONE 80 MG TAB PO SCH (21:27)
[2018-07-20] MEDS: ATORVASTATIN 40 MG TAB PO SCH (21:27)
[2018-07-20] MEDS: traZODone HCL 50 MG TAB PO SCH (21:27)
[2018-07-21] MEDS: SERTRALINE 100 MG TAB PO SCH ×2 (08:11→20:44)
[2018-07-21] MEDS: NICOTINE 14MG/24HR PATCH TRANSDERM SCH (08:11)
[2018-07-21] MEDS: LITHIUM CARBONATE 300 MG CAP PO SCH ×2 (08:11→20:44)
[2018-07-21] MEDS: PANTOPRAZOLE 40 MG TABLET PO SCH (08:11)
[2018-07-21] MEDS ORDERED: SERTRALINE 25 MG TAB PO SCH (09:00)
[2018-07-21] MEDS: BUDESONIDE 0.5 MG/2 ML NEBU INHALATION SCH (09:26)
--- NOTE | 2018-07-21 09:37 | P.PN ---
Progress Note - Text Interval history: The patient's is found in the hallway she follows me to an interview room. She indicates her mood is still down. She states that her suicidal thoughts are transitioning from active to passive. She has been attending groups. Appetite stable. We reviewed her psychotropic medication. She is compliant with medication. In terms of discharge planning was discussed the possibility of having her attend the partial hospital program at [facility] and she is amenable to considering that as an option. Mental status exam: The patient is alert she presents with adequate hygiene grooming. She is pleasant and cooperative. She describes an ongoing chronically depressed mood. She reports some passive suicidal ideation states she is experiencing no acute suicidal ideation intent or plan. She is concerned that this could transition back again if she is discharged to the same home environment and level of support. She demonstrates no verbal or physical aggressiveness she demonstrates no evidence of psychosis hypomania or amee. Insight and judgment slowly improving. She is oriented to person place and date. Plan: The patient's will continue on her current psychotropic medication. We will draw a lithium level tomorrow morning. We will explore her option of attending [facility] hospital at [facility] if it's covered by her insurance. Vital signs reviewed.
[2018-07-21] MEDS: LORazepam 1 MG TAB PO PRN ×2 (13:44→20:44)
[2018-07-21] MEDS: ATORVASTATIN 40 MG TAB PO SCH (20:44)
[2018-07-21] MEDS: traZODone HCL 50 MG TAB PO SCH (20:44)
[2018-07-21] MEDS: LURASIDONE 80 MG TAB PO SCH (20:44)
[2018-07-22] MEDS: BUDESONIDE 0.5 MG/2 ML NEBU INHALATION SCH ×2 (01:37→08:25)
[2018-07-22 07:14] VITALS: BP 129/80; PULSE 81; TEMP 97.6
[2018-07-22] MEDS: PANTOPRAZOLE 40 MG TABLET PO SCH (08:24)
[2018-07-22] MEDS: NICOTINE 14MG/24HR PATCH TRANSDERM SCH (08:24)
[2018-07-22] MEDS: SERTRALINE 100 MG TAB PO SCH (08:25)
[2018-07-22] MEDS: LITHIUM CARBONATE 300 MG CAP PO SCH (08:25)
[2018-07-22] MEDS: LORazepam 1 MG TAB PO PRN (08:26)
[2018-07-22 09:31] LABS: Blood Urea Nitrogen 9 mg/dL (7-17); Lithium 0.5 mmol/L
--- NOTE | 2018-07-22 09:47 | P.DS ---
Providers Date of admission: 07/16/18 16:37 Expected date of discharge: 07/22/18 Attending physician: Slick Lawler Consults: 07/16/18 16:42 Consult Physician Routine Consulting Provider: Amairani Falcon Consult Reason/Comments: H & P and medical care Do you want consulting provider notified?: Yes Primary care physician: Jacinto Galvan - Discharge Diagnosis(es) (1) Major depressive disorder, recurrent severe without psychotic features Current Visit: Yes Status: Acute Priority: High (2) Anxiety Current Visit: No Status: Acute Priority: Medium Hospital Course: Brief summary of admission note: This patient is a 57-year-old female who was admitted to the mental health unit through the emergency room for symptoms of depression with suicidal ideation. She described having low energy overall motivation poor appetite. She described having hopeless thoughts. She had recently met with her psychiatric nurse practitioner and had described her symptoms at the time and was directed to go to the emergency room. The patient is known to us from previous admissions. For full details please refer to my psychiatric evaluation dated 07/17/2018. Summary of hospital course: The patient was admitted to the mental health unit voluntarily. We reviewed her presenting symptoms and treatment options. Her lithium had just been recently increased in the outpatient setting. We made no further medication change other than reducing the Latuda back down to 80 mg. The patient does demonstrate personality disorder traits. She was encouraged to work on coping skill development during group activities. During the course of this stay she reported improvement in her acute symptoms. As part of a transition plan we discussed having her participate in the [facility] hospital program at [facility] and she was agreeable. She did participate in group. She was easily directed during her hospitalization she demonstrated no agitated behavior. She was seen by internal medicine for routine history and physical exam. Social work met with the patient several times complete a psychosocial assessment and for discharge planning purposes. Mental status exam: The patient is alert she is dressed in her own clothing hygiene grooming are good. Eye contact is appropriate speech is fluent spontaneous nonpressured. She reports her mood is improved. She is reporting no acute suicidal ideation intent or plan. She is reporting no homicidal ideation intent or plan. She reports no auditory or visual hallucinations or specific delusions. There is no observed evidence of psychosis. She demonstrates no tangential thinking loose associations or flight of ideas. She does not appear hypomanic or manic. She demonstrates no verbal or physical aggressiveness she demonstrates no involuntary repetitive movements. Insight and judgment grossly intact. She demonstrates future oriented thinking. Impressions 1. Major depressive disorder recurrent severe without psychosis rule out bipolar depression, anxiety unspecified 2. Cluster B traits Plan: The patient will be discharged mental health unit today. She plans on residing with a friend rather than returning to her apartment. She states that this will assist her in socializing more and not isolating. She will be participating in the partial hospital program at [facility] starting tomorrow. The patient will continue on lithium carbonate 300 mg twice daily, Latuda 80 mg at bedtime, Zoloft 100 mg twice daily, trazodone 150 mg at bedtime. The lithium level was drawn this morning we are awaiting the results. At this time there is no imminent safety risk she is appropriate for transition to the partial hospital program at [facility]. She is instructed to return to the hospital any acute safety concerns. Patient Condition at Discharge: Stable Plan - Discharge Summary New Discharge Prescriptions: New Nicotine 14Mg/24Hr Patch [Habitrol] 1 patch TRANSDERM DAILY #14 patch Atorvastatin [Lipitor] 40 mg PO HS #30 tab Continue Lurasidone [Latuda] 80 mg PO HS #30 tab Gabapentin [Neurontin] 100 mg PO BID Omeprazole [PriLOSEC] 20 mg PO AC-BRKFST Sertraline [Zoloft] 100 mg PO BID [place] Carbonate 300 mg PO BID traZODone HCL 150 mg PO HS Discontinued LORazepam [Ativan] 1 mg PO TID PRN PRN Reason: Anxiety Lurasidone [Latuda] 20 mg PO HS Discharge Medication List Lurasidone [Latuda] 80 mg PO HS #30 tab 01/22/18 [Rx] Gabapentin [Neurontin] 100 mg PO BID 05/20/18 [History] Omeprazole [PriLOSEC] 20 mg PO AC-BRKFST 05/20/18 [History] Sertraline [Zoloft] 100 mg PO BID 05/20/18 [History] [place] Carbonate 300 mg PO BID 07/16/18 [History] traZODone HCL 150 mg PO HS 07/16/18 [History] Atorvastatin [Lipitor] 40 mg PO HS #30 tab 07/22/18 [Rx] Nicotine 14Mg/24Hr Patch [Habitrol] 1 patch TRANSDERM DAILY #14 patch 07/22/18 [Rx] Follow up Appointment(s)/Referral(s): intake,intake [Other] - 07/23/18 8:30 am Jacinto Galvan DO [Primary Care Provider] - 1-2 days Activity/Diet/Wound Care/Special Instructions: Repeat cholesterol levels in 3-6 months
== END 2018-07-22 11:07 | disposition home or self-care (01) | DRG 885 ==
LOC: EC 13:47 → 3MHU 16:37
PROVIDERS: ADMIT Psychiatry & Neurology Psychiatry; ATTEND Psychiatry & Neurology Psychiatry
DX: F33.2 Major depressive disorder, recurrent severe without psychotic features (principal); K51.90 Ulcerative colitis, unspecified, without complications; R45.851 Suicidal ideations; F17.210 Nicotine dependence, cigarettes, uncomplicated; F43.10 Post-traumatic stress disorder, unspecified; F60.9 Personality disorder, unspecified; I10 Essential (primary) hypertension; J44.9 Chronic obstructive pulmonary disease, unspecified; K21.9 Gastro-esophageal reflux disease without esophagitis; Z79.899 Other long term (current) drug therapy; Z81.8 Family history of other mental and behavioral disorders; Z82.49 Family history of ischemic heart disease and other diseases of the circulatory system; Z82.5 Family history of asthma and other chronic lower respiratory diseases; Z91.5 Personal history of self-harm; Z81.1 Family history of alcohol abuse and dependence; Z62.810 Personal history of physical and sexual abuse in childhood; Z91.410 Personal history of adult physical and sexual abuse
CPT/HCPCS: 80053; 80061; 80178; 80306; 81003; 82075; 82248; 82565; 83036; 84443; 84520; 85025; 85027; 99285

== ENCOUNTER 2018-11-23 16:51 | Emergency (ER) | payer MEDICARE ==
[2018-11-23 17:07] VITALS: TEMP 98.6
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
[2018-11-23 17:39] LABS: Basophils # (A) 0.2 k/uL (0-0.2); Basophils % (A) 1 %; Eosinophils # (A) 0.4 k/uL (0-0.7); Eosinophils % (A) 3 %; HCT 37.4 % (34.0-46.0); HGB 12.4 gm/dL (11.4-16.0); Lymphocytes # (A) 1.9 k/uL (1.0-4.8); Lymphocytes % (A) 17 %; MCH 32.3 pg (25.0-35.0); MCV 97.7 fL (80.0-100.0); Mean Platelet Volume 6.1; Monocytes # (A) 0.6 k/uL (0-1.0); Monocytes % (A) 6 %; Neutrophils # (A) 8.1 k/uL (1.3-7.7); Neutrophils % (A) 71 %; Platelet Count 469 k/uL (150-450); RBC 3.83 m/uL (3.80-5.40); RDW 13.1 % (11.5-15.5); WBC 11.3 k/uL (3.8-10.6)
[2018-11-23 17:47] LABS: ALT 11 U/L (9-52); AST 22 U/L (14-36); Acetaminophen <10.0 ug/mL; African American GFR (CKD) >90 (>60 ml/min/1.73 sqM); Alcohol <10 mg/dL; Alkaline Phosphatase 67 U/L (38-126); Anion Gap 6 mmol/L; Blood Urea Nitrogen 6 mg/dL (7-17); Calcium 9.5 mg/dL (8.4-10.2); Carbon Dioxide 24 mmol/L (22-30); Chloride 108 mmol/L (98-107); Glucose 96 mg/dL (74-99); Lithium 0.2 mmol/L; Salicylate <1.0 mg/dL; Sodium 138 mmol/L (137-145); Total Bilirubin 0.4 mg/dL (0.2-1.3); Total Protein 6.6 g/dL (6.3-8.2)
[2018-11-23 17:49] LABS: Potassium 4.2 mmol/L (3.5-5.1)
--- NOTE | 2018-11-23 17:55 | XR ---
EXAMINATION TYPE: XR chest 2V DATE OF EXAM: 11/23/2018 COMPARISON: 03/19/2015 HISTORY: Altered mental status TECHNIQUE: Frontal and lateral views of the chest are obtained. FINDINGS: There is some linear density at the left lung base. Heart size is slightly enlarged. There are no hilar masses. There is no pleural effusion. IMPRESSION: Mild cardiomegaly. Minimal subsegmental atelectasis left lower lobe. This appears new co mpared to old exam. No heart failure.
--- NOTE | 2018-11-23 18:00 | CT ---
EXAMINATION TYPE: CT brain wo con DATE OF EXAM: 11/23/2018 COMPARISON: 03/19/2015 HISTORY: AMS, confusion CT DLP: 1143.4 mGycm Automated exposure control for dose reduction was used. FINDINGS: There is mild cerebral atrophy. There is no mass effect nor midline shift. There is no sign of intrac ranial hemorrhage. The calvarium is intact. IMPRESSION: MILD ATROPHY. NO ACUTE INTRACRANIAL ABNORMALITY. NO ADVERSE CHANGE COMPARED TO OLD EXAM.
[2018-11-23 18:26] LABS: Appearance,Urine Clear (Clear); Bilirubin,Urine Negative (Negative); Blood,Urine Negative (Negative); Color,Urine Light Yellow; Glucose,Urine (UA) Negative (Negative); Ketones,Urine Negative (Negative); Leukocyte Esterase,Urine Negative (Negative); Nitrite,Urine Negative (Negative); Protein,Urine Negative (Negative); Specific Gravity,Urine 1.007 (1.001-1.035); Urobilinogen,Urine <2.0 mg/dL (<2.0)
[2018-11-23 18:34] LABS: Amphetamine Screen,Urine Not Detected (NotDetected); Barbiturate Screen,Urine Not Detected (NotDetected); Benzodiazepines Screen,Urine Detected (NotDetected); Cocaine Screen,Urine Not Detected (NotDetected); Methadone Screen, Urine Not Detected (NotDetected); Opiate Screen,Urine Not Detected (NotDetected); Oxycodone Screen, Urine Not Detected (NotDetected); Phencyclidine Screen,Urine Not Detected (NotDetected); Tricyclic Antidepressant,Urine Not Detected (NotDetected); Urn Cannabinoid Scrn Not Detected (NotDetected)
[2018-11-23 20:46] VITALS: BP 136/72; PULSE 80; RESP 18
== END 2018-11-23 20:55 | disposition home or self-care (01) ==
LOC: EC 16:51
DX: Z00.8 Encounter for other general examination (principal); J44.9 Chronic obstructive pulmonary disease, unspecified; F31.9 Bipolar disorder, unspecified; F17.200 Nicotine dependence, unspecified, uncomplicated; Z79.51 Long term (current) use of inhaled steroids; Z79.899 Other long term (current) drug therapy; Z87.19 Personal history of other diseases of the digestive system; Z91.5 Personal history of self-harm
CPT/HCPCS: 82075; 36415; 93005; 80053; 80178; 85025; 81003; 80306; 83520; 71046; 70450; 99285; G0480 ×2; 80320; 80329

== ENCOUNTER 2019-05-20 01:10 | Inpatient (IN) | payer MEDICARE ==
[2019-05-20] MEDS ORDERED: DIPH,PERTUS(ACELL)TETVAC-LF 0.5 ML VIAL IM ONE (01:37)
[2019-05-20] MEDS ORDERED: SODIUM CHLORIDE 0.9% 1,000 ML IV STA (01:37)
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
[2019-05-20 02:13] LABS: VBG PH 7.33 (7.31-7.41)
[2019-05-20 02:22] LABS: ALT 40 U/L (4-34); AST 32 U/L (14-36); African American GFR (CKD) >90 (>60 ml/min/1.73 sqM); Albumin 4.6 g/dL (3.5-5.0); Alcohol <10 mg/dL; Alkaline Phosphatase 104 U/L (38-126); Anion Gap 10 mmol/L; Blood Urea Nitrogen 13 mg/dL (7-17); Calcium 10.3 mg/dL (8.4-10.2); Carbon Dioxide 23 mmol/L (22-30); Chloride 101 mmol/L (98-107); Glucose 99 mg/dL (74-99); Non-African American GFR(CKD) 88 (>60 ml/min/1.73 sqM); Potassium 4.7 mmol/L (3.5-5.1); Sodium 134 mmol/L (137-145); Total Bilirubin 0.4 mg/dL (0.2-1.3); Total Protein 7.6 g/dL (6.3-8.2)
[2019-05-20 02:35] LABS: Amorphous Sediment,Urine Rare /hpf; Appearance,Urine Cloudy (Clear); Bacteria,Urine Occasional /hpf; Bilirubin,Urine Negative (Negative); Blood,Urine Negative (Negative); Color,Urine Yellow; Glucose,Urine (UA) Negative (Negative); Ketones,Urine Negative (Negative); Leukocyte Esterase,Urine Large (Negative); Mucus,Urine Rare /hpf; Nitrite,Urine Negative (Negative); PH, Urine 7.5 (5.0-8.0); Protein,Urine Trace (Negative); RBC,Urine 9 /hpf (0-5); Specific Gravity,Urine 1.019 (1.001-1.035); Squamous Epithelial Cell,Urine 15 /hpf (0-4); Urobilinogen,Urine <2.0 mg/dL (<2.0); WBC,Urine 10 /hpf (0-5)
[2019-05-20 02:42] LABS: Basophils # (A) 0.1 k/uL (0-0.2); Basophils % (A) 0 %; Eosinophils # (A) 0.3 k/uL (0-0.7); Eosinophils % (A) 2 %; Lymphocytes # (A) 1.6 k/uL (1.0-4.8); Lymphocytes % (A) 8 %; MCH 30.9 pg (25.0-35.0); MCHC 31.8 g/dL (31.0-37.0); MCV 97.4 fL (80.0-100.0); Monocytes # (A) 1.6 k/uL (0-1.0); Monocytes % (A) 8 %; Neutrophils # (A) 17.2 k/uL (1.3-7.7); Neutrophils % (A) 82 %; Platelet Count 606 k/uL (150-450); RBC 4.21 m/uL (3.80-5.40); RDW 12.7 % (11.5-15.5)
[2019-05-20 02:48] LABS: Amphetamine Screen,Urine Not Detected (NotDetected); Barbiturate Screen,Urine Not Detected (NotDetected); Benzodiazepines Screen,Urine Detected (NotDetected); Cocaine Screen,Urine Not Detected (NotDetected); Methadone Screen, Urine Not Detected (NotDetected); Opiate Screen,Urine Not Detected (NotDetected); Oxycodone Screen, Urine Not Detected (NotDetected); Phencyclidine Screen,Urine Not Detected (NotDetected); Tricyclic Antidepressant,Urine Detected (NotDetected); Urn Cannabinoid Scrn Not Detected (NotDetected)
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
[2019-05-20] MEDS ORDERED: cefTRIAXone IN SWFI 1,000 MG/10 ML SYRINGE IVP STA (03:16)
[2019-05-20] MEDS ORDERED: metroNIDAZOLE-NS PMX 500 MG in SALINE 1 100ML.BAG IVPB STA (03:16)
[2019-05-20] MEDS ORDERED: NALOXONE 0.4 MG/ML 1 ML VIAL IV PRN (03:21)
[2019-05-20] MEDS: SODIUM CHLORIDE 0.9% 1,000 ML IV SCH ×2 (04:00→17:04)
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
[2019-05-20] MEDS ORDERED: metroNIDAZOLE-NS PMX 500 MG in SALINE 1 100ML.BAG IVPB SCH (12:00)
[2019-05-20] MEDS: ACETAMINOPHEN TAB 325 MG TAB PO PRN ×3 (12:24→23:25)
[2019-05-20] MEDS: metroNIDAZOLE 500 MG TAB PO SCH ×3 (12:24→21:00)
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
[2019-05-20] MEDS ORDERED: MELATONIN 5 MG TABLET PO PRN (13:04)
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
[2019-05-20] MEDS: LITHIUM CARBONATE 150 MG CAP PO SCH ×2 (17:04→21:00)
[2019-05-20] MEDS: ATORVASTATIN 40 MG TAB PO SCH (20:59)
[2019-05-20] MEDS ORDERED: QUEtiapine 25 MG TAB PO SCH (21:00)
[2019-05-21 04:12] VITALS: RESP 16
[2019-05-21 07:33] LABS: Basophils % (A) 0 %; Eosinophils # (A) 0.4 k/uL (0-0.7); Eosinophils % (A) 3 %; HCT 36.9 % (34.0-46.0); HGB 11.5 gm/dL (11.4-16.0); Lymphocytes # (A) 1.8 k/uL (1.0-4.8); Lymphocytes % (A) 14 %; MCH 30.6 pg (25.0-35.0); MCHC 31.3 g/dL (31.0-37.0); MCV 97.9 fL (80.0-100.0); Mean Platelet Volume 7.5; Monocytes % (A) 8 %; Neutrophils # (A) 9.8 k/uL (1.3-7.7); Neutrophils % (A) 73 %; Platelet Count 511 k/uL (150-450); RBC 3.77 m/uL (3.80-5.40); RDW 12.7 % (11.5-15.5); WBC 13.4 k/uL (3.8-10.6)
[2019-05-21] MEDS: ACETAMINOPHEN TAB 325 MG TAB PO PRN ×3 (07:48→21:25)
[2019-05-21] MEDS: LITHIUM CARBONATE 150 MG CAP PO SCH ×2 (07:49→21:16)
[2019-05-21] MEDS: SODIUM CHLORIDE 0.9% 1,000 ML IV SCH ×2 (07:49→21:15)
[2019-05-21] MEDS: metroNIDAZOLE 500 MG TAB PO SCH ×4 (07:49→21:16)
[2019-05-21 07:56] LABS: ALT 28 U/L (4-34); AST 23 U/L (14-36); African American GFR (CKD) >90 (>60 ml/min/1.73 sqM); Albumin 3.8 g/dL (3.5-5.0); Alkaline Phosphatase 96 U/L (38-126); Anion Gap 6 mmol/L; Blood Urea Nitrogen 7 mg/dL (7-17); Calcium 9.8 mg/dL (8.4-10.2); Carbon Dioxide 24 mmol/L (22-30); Chloride 105 mmol/L (98-107); Glucose 102 mg/dL (74-99); Non-African American GFR(CKD) >90 (>60 ml/min/1.73 sqM); Potassium 4.2 mmol/L (3.5-5.1); Sodium 135 mmol/L (137-145); Total Bilirubin 0.4 mg/dL (0.2-1.3); Total Protein 6.6 g/dL (6.3-8.2)
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
[2019-05-21] MEDS ORDERED: QUEtiapine 50 MG TAB PO SCH (21:00)
[2019-05-21] MEDS ORDERED: MELATONIN 5 MG TABLET PO SCH (21:00)
[2019-05-21] MEDS: ATORVASTATIN 40 MG TAB PO SCH (21:16)
[2019-05-21] MEDS ORDERED: LORazepam 1 MG TAB PO PRN (22:19)
[2019-05-22 06:08] VITALS: BP 121/82; PULSE 80; TEMP 98
[2019-05-22 07:27] LABS: Basophils % (A) 0 %; Eosinophils # (A) 0.5 k/uL (0-0.7); Eosinophils % (A) 6 %; HCT 36.3 % (34.0-46.0); HGB 11.2 gm/dL (11.4-16.0); Lymphocytes # (A) 1.5 k/uL (1.0-4.8); Lymphocytes % (A) 18 %; MCH 30.3 pg (25.0-35.0); MCHC 30.9 g/dL (31.0-37.0); MCV 98.1 fL (80.0-100.0); Mean Platelet Volume 7.4; Monocytes # (A) 0.6 k/uL (0-1.0); Monocytes % (A) 7 %; Neutrophils # (A) 5.4 k/uL (1.3-7.7); Neutrophils % (A) 66 %; Platelet Count 504 k/uL (150-450); RDW 12.6 % (11.5-15.5); WBC 8.2 k/uL (3.8-10.6)
[2019-05-22 07:53] LABS: ALT 22 U/L (4-34); AST 18 U/L (14-36); African American GFR (CKD) >90 (>60 ml/min/1.73 sqM); Albumin 3.6 g/dL (3.5-5.0); Alkaline Phosphatase 79 U/L (38-126); Anion Gap 6 mmol/L; Blood Urea Nitrogen 11 mg/dL (7-17); Calcium 9.5 mg/dL (8.4-10.2); Carbon Dioxide 25 mmol/L (22-30); Chloride 107 mmol/L (98-107); Glucose 101 mg/dL (74-99); Non-African American GFR(CKD) >90 (>60 ml/min/1.73 sqM); Potassium 3.8 mmol/L (3.5-5.1); Sodium 138 mmol/L (137-145); Total Bilirubin 0.3 mg/dL (0.2-1.3); Total Protein 6.4 g/dL (6.3-8.2)
[2019-05-22] MEDS ORDERED: ESCITALOPRAM 20 MG TAB PO SCH (09:00)
[2019-05-22] MEDS ORDERED: CEPHALEXIN 500 MG CAP PO SCH (09:00)
[2019-05-22] MEDS ORDERED: LURASIDONE 80 MG TAB PO SCH (09:00)
[2019-05-22] MEDS ORDERED: buPROPion XL 300 MG TAB.ER.24H PO SCH (09:00)
[2019-05-22] MEDS ORDERED: LITHIUM CARBONATE ER 450 MG TABLET.ER PO SCH (09:00)
[2019-05-22] MEDS: SODIUM CHLORIDE 0.9% 1,000 ML IV SCH (09:11)
[2019-05-22] MEDS: metroNIDAZOLE 500 MG TAB PO SCH ×3 (09:12→17:32)
[2019-05-22] MEDS: ACETAMINOPHEN TAB 325 MG TAB PO PRN ×2 (09:12→15:49)
[2019-05-22] MEDS: LITHIUM CARBONATE 150 MG CAP PO SCH (09:13)
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
[2019-05-22] MEDS ORDERED: QUEtiapine 25 MG TAB PO SCH (21:00)
== END 2019-05-22 21:00 | disposition home or self-care (01) | DRG 871 ==
LOC: EC 01:10 → 6NMEDSUR 03:21 → OBSVTOIN 05-21 13:56
PROVIDERS: ADMIT Family Medicine; ATTEND Family Medicine
DX: A41.50 Gram-negative sepsis, unspecified (principal); G93.41 Metabolic encephalopathy; S22.32XA Fracture of one rib, left side, initial encounter for closed fracture; N39.0 Urinary tract infection, site not specified; E87.2 Acidosis; K51.90 Ulcerative colitis, unspecified, without complications; M84.48XA Pathological fracture, other site, initial encounter for fracture; F17.210 Nicotine dependence, cigarettes, uncomplicated; F31.9 Bipolar disorder, unspecified; F43.10 Post-traumatic stress disorder, unspecified; I10 Essential (primary) hypertension; J44.9 Chronic obstructive pulmonary disease, unspecified; J70.5 Respiratory conditions due to smoke inhalation; T23.001A Burn of unspecified degree of right hand, unspecified site, initial encounter; T59.811A Toxic effect of smoke, accidental (unintentional), initial encounter; W19.XXXA Unspecified fall, initial encounter; Y92.009 Unspecified place in unspecified non-institutional (private) residence as the place of occurrence of the external cause; Z79.899 Other long term (current) drug therapy; Z82.49 Family history of ischemic heart disease and other diseases of the circulatory system; Z82.5 Family history of asthma and other chronic lower respiratory diseases; Z99.81 Dependence on supplemental oxygen; S30.811A Abrasion of abdominal wall, initial encounter; Z98.51 Tubal ligation status; H26.9 Unspecified cataract; Z60.2 Problems related to living alone; Z91.5 Personal history of self-harm; Z56.0 Unemployment, unspecified; Z87.19 Personal history of other diseases of the digestive system; Z81.1 Family history of alcohol abuse and dependence; F10.21 Alcohol dependence, in remission; F12.11 Cannabis abuse, in remission; F15.11 Other stimulant abuse, in remission; K57.30 Diverticulosis of large intestine without perforation or abscess without bleeding; F63.1 Pyromania
CPT/HCPCS: 36415; 70450; 71250; 72125; 72128; 74176; 80053; 80306; 80320; 81001; 82375; 82803; 83605; 84484; 85025; 87077; 87086; 87186; 90471; 90715; 96361; 96365; 96375; 99291